=== PATIENT | male | born 1940 | race Caucasian/White ===

== ENCOUNTER 2016-10-23 13:03 | Outpatient (CLI) | payer MEDICARE, OTHER | END 2016-10-23 13:04 | disposition home or self-care (01) | DX: I48.0 Paroxysmal atrial fibrillation (principal); Z79.01 Long term (current) use of anticoagulants ==

== ENCOUNTER 2016-12-18 13:02 | Outpatient (CLI) | payer MEDICARE, OTHER | END 2016-12-18 13:03 | disposition home or self-care (01) | DX: Z79.01 Long term (current) use of anticoagulants (principal); I48.0 Paroxysmal atrial fibrillation ==

== ENCOUNTER 2017-02-13 13:00 | Outpatient (CLI) | payer MEDICARE, OTHER | END 2017-02-13 13:01 | disposition home or self-care (01) | LOC: LAB.F 13:00 | PROVIDERS: ATTEND Pharmacist | DX: Z79.01 Long term (current) use of anticoagulants (principal) | CPT/HCPCS: 85610 ==

== ENCOUNTER 2017-04-09 13:05 | Outpatient (CLI) | payer MEDICARE, OTHER | END 2017-04-09 13:06 | disposition home or self-care (01) | LOC: LAB.F 13:05 | PROVIDERS: ATTEND Pharmacist | DX: Z79.01 Long term (current) use of anticoagulants (principal) | CPT/HCPCS: 85610 ==

== ENCOUNTER 2017-06-04 13:03 | Outpatient (CLI) | payer MEDICARE, OTHER ==
[2017-06-04 17:23] LABS: INR 4.3 (0.8-1.2); PT - PROTHROMBIN TIME 49.5 secs (9.9-12.6)
== END 2017-06-04 13:04 | disposition home or self-care (01) ==
LOC: LAB.F 13:03
PROVIDERS: ATTEND Pharmacist
DX: Z79.01 Long term (current) use of anticoagulants (principal); I48.0 Paroxysmal atrial fibrillation
CPT/HCPCS: 36415; 85610

== ENCOUNTER 2017-06-16 13:09 | Outpatient (CLI) | payer MEDICARE, OTHER | END 2017-06-16 13:10 | disposition home or self-care (01) | LOC: LAB.F 13:09 | PROVIDERS: ATTEND Pharmacist | DX: Z79.01 Long term (current) use of anticoagulants (principal); I48.0 Paroxysmal atrial fibrillation | CPT/HCPCS: 85610 ==

== ENCOUNTER 2017-07-22 13:06 | Outpatient (CLI) | payer MEDICARE, OTHER | END 2017-07-22 13:07 | disposition home or self-care (01) | LOC: LAB.F 13:06 | PROVIDERS: ATTEND Pharmacist | DX: Z79.01 Long term (current) use of anticoagulants (principal); I48.0 Paroxysmal atrial fibrillation | CPT/HCPCS: 85610 ==

== ENCOUNTER 2017-08-07 13:12 | Outpatient (CLI) | payer MEDICARE, OTHER | END 2017-08-07 13:13 | disposition home or self-care (01) | LOC: LAB.F 13:12 | PROVIDERS: ATTEND Pharmacist | DX: Z79.01 Long term (current) use of anticoagulants (principal); I48.0 Paroxysmal atrial fibrillation | CPT/HCPCS: 85610 ==

== ENCOUNTER 2017-09-05 14:31 | Outpatient (CLI) | payer MEDICARE, OTHER | END 2017-09-05 14:32 | disposition home or self-care (01) | LOC: LAB.F 14:31 | PROVIDERS: ATTEND Pharmacist | DX: Z79.01 Long term (current) use of anticoagulants (principal); I48.0 Paroxysmal atrial fibrillation | CPT/HCPCS: 85610 ==

== ENCOUNTER 2017-09-24 13:11 | Outpatient (CLI) | payer MEDICARE, OTHER | END 2017-09-24 13:12 | disposition home or self-care (01) | LOC: LAB.F 13:11 | PROVIDERS: ATTEND Pharmacist | DX: Z79.01 Long term (current) use of anticoagulants (principal); I48.0 Paroxysmal atrial fibrillation | CPT/HCPCS: 85610 ==

== ENCOUNTER 2017-10-27 13:12 | Outpatient (CLI) | payer MEDICARE, OTHER | END 2017-10-27 13:13 | disposition home or self-care (01) | LOC: LAB.F 13:12 | PROVIDERS: ATTEND Pharmacist | DX: I48.91 Unspecified atrial fibrillation (principal); Z79.01 Long term (current) use of anticoagulants | CPT/HCPCS: 85610 ==

== ENCOUNTER 2017-11-27 14:42 | Outpatient (CLI) | payer MEDICARE, OTHER | END 2017-11-27 14:43 | disposition home or self-care (01) | LOC: LAB.F 14:42 | PROVIDERS: ATTEND Pharmacist | DX: Z79.01 Long term (current) use of anticoagulants (principal); I48.0 Paroxysmal atrial fibrillation | CPT/HCPCS: 85610 ==

== ENCOUNTER 2017-12-12 13:10 | Outpatient (CLI) | payer MEDICARE, OTHER | END 2017-12-12 13:11 | disposition home or self-care (01) | LOC: LAB.F 13:10 | PROVIDERS: ATTEND Pharmacist | DX: I48.0 Paroxysmal atrial fibrillation (principal); Z79.01 Long term (current) use of anticoagulants | CPT/HCPCS: 85610 ==

== ENCOUNTER 2017-12-26 13:07 | Outpatient (CLI) | payer MEDICARE, OTHER | END 2017-12-26 13:08 | disposition home or self-care (01) | LOC: LAB.F 13:07 | PROVIDERS: ATTEND Pharmacist | DX: Z79.01 Long term (current) use of anticoagulants (principal); I48.0 Paroxysmal atrial fibrillation | CPT/HCPCS: 85610 ==

== ENCOUNTER 2018-01-21 13:14 | Outpatient (CLI) | payer MEDICARE, OTHER | END 2018-01-21 13:15 | disposition home or self-care (01) | LOC: LAB.F 13:14 | PROVIDERS: ATTEND Pharmacist | DX: I48.0 Paroxysmal atrial fibrillation (principal); Z79.01 Long term (current) use of anticoagulants | CPT/HCPCS: 85610 ==

== ENCOUNTER 2018-02-24 13:05 | Outpatient (CLI) | END 2018-02-24 13:06 | disposition home or self-care (01) ==

== ENCOUNTER 2018-03-10 13:29 | Outpatient (CLI) | payer MEDICARE, OTHER | END 2018-03-10 13:30 | disposition home or self-care (01) | LOC: LAB.F 13:29 | PROVIDERS: ATTEND Pharmacist | DX: I48.0 Paroxysmal atrial fibrillation (principal); Z79.01 Long term (current) use of anticoagulants | CPT/HCPCS: 85610 ==

== ENCOUNTER 2018-04-01 13:32 | Outpatient (CLI) | payer MEDICARE, OTHER | END 2018-04-01 13:33 | disposition home or self-care (01) | LOC: LAB.F 13:32 | PROVIDERS: ATTEND Pharmacist | DX: Z79.01 Long term (current) use of anticoagulants (principal); I48.0 Paroxysmal atrial fibrillation | CPT/HCPCS: 85610 ==

== ENCOUNTER 2018-04-27 13:13 | Outpatient (CLI) | payer MEDICARE, OTHER | END 2018-04-27 13:14 | disposition home or self-care (01) | LOC: LAB.F 13:13 | PROVIDERS: ATTEND Pharmacist | DX: Z79.01 Long term (current) use of anticoagulants (principal); I48.0 Paroxysmal atrial fibrillation | CPT/HCPCS: 85610 ==

== ENCOUNTER 2018-05-13 13:51 | Outpatient (CLI) | payer MEDICARE, OTHER | END 2018-05-13 13:52 | disposition home or self-care (01) | LOC: LAB.F 13:51 | PROVIDERS: ATTEND Pharmacist | DX: I48.0 Paroxysmal atrial fibrillation (principal); Z79.01 Long term (current) use of anticoagulants | CPT/HCPCS: 85610 ==

== ENCOUNTER 2018-05-28 13:46 | Outpatient (CLI) | payer MEDICARE, OTHER | END 2018-05-28 13:47 | disposition home or self-care (01) | LOC: LAB.F 13:46 | PROVIDERS: ATTEND Pharmacist | DX: Z79.01 Long term (current) use of anticoagulants (principal); I48.0 Paroxysmal atrial fibrillation | CPT/HCPCS: 85610 ==

== ENCOUNTER 2018-06-23 11:05 | Outpatient (CLI) | payer MEDICARE, OTHER | END 2018-06-23 11:06 | disposition home or self-care (01) | LOC: LAB.F 11:05 | PROVIDERS: ATTEND Pharmacist | DX: Z79.01 Long term (current) use of anticoagulants (principal); I48.0 Paroxysmal atrial fibrillation | CPT/HCPCS: 85610 ==

== ENCOUNTER 2018-07-13 10:09 | Outpatient (CLI) | payer MEDICARE, OTHER | END 2018-07-13 10:10 | disposition critical access hospital (66) | LOC: EMS 10:09 | PROVIDERS: ATTEND Surgery | DX: M25.552 Pain in left hip (principal); W01.0XXA Fall on same level from slipping, tripping and stumbling without subsequent striking against object, initial encounter; Y92.008 Other place in unspecified non-institutional (private) residence as the place of occurrence of the external cause | CPT/HCPCS: A0425; A0429 ==

== ENCOUNTER 2018-07-13 10:48 | Inpatient (IN) | payer MEDICARE, OTHER ==
--- NOTE | 2018-07-13 10:57 | ED Physician Documentation ---
History of Present Illness - Stated complaint Stated Complaint: GLF - Additonal information Additional information: hx from pt 78 male slipped on wet leaves and fell on l hip severe l hip pain unable to bear weight did not hit head - has no WISE has no neck pain, has no numbness or weakness Review of Systems Constitutional: denies: Fever Cardiac: denies: Chest pain / pressure Respiratory: denies: Dyspnea GI: denies: Abdominal Pain : denies: Dysuria Musculoskeletal: reports: Extremity pain, Joint pain. denies: Neck pain Neurologic: denies: Headache, Head injury Endocrine: reports: Easy bruising / bleeding PD PAST MEDICAL HISTORY - Present Medications Home Medications: Ambulatory Orders Medication Instructions Recorded Confirmed Warfarin [Coumadin] 07/13/18 - Allergies Allergies/Adverse Reactions: Allergies Allergy/AdvReac Type Severity Reaction Status Date / Time No Known Drug Allergies Allergy Verified 07/13/18 11:06 PD ED PE NORMAL - Vitals Vital signs reviewed: Yes - General General: Alert and oriented X 3 - HEENT HEENT: Atraumatic - Neck Neck: No bony TTP - Cardiac Cardiac: RRR - Respiratory Respiratory: No respiratory distress, Clear bilaterally - Abdomen Abdomen: Non tender - Extremities Extremities: Other (TTP lat L hip with slight ext rotattion, gold LE edema not new per pt, MSV intact) Results - Vitals Vitals: Vital Signs - 24 hr 07/13/18 10:50 Temperature 36.3 C L Heart Rate 83 Respiratory 18 Rate Blood Pressure 154/97 H O2 Saturation 95 Oxygen O2 Source Room air - Labs Labs: Laboratory Tests 07/13/18 07/13/18 07/13/18 11:03 11:03 11:03 WBC 10.1 RBC 4.83 Hgb 15.4 Hct 44.8 MCV 92.8 MCH 31.8 H MCHC 34.3 RDW 13.1 Plt Count 167 MPV 10.2 Neut # (Auto) 8.4 H Lymph # (Auto) 0.8 L [place] # (Auto) 0.7 Eos # (Auto) 0.1 Baso # (Auto) 0.1 Absolute Nucleated RBC 0.00 Nucleated RBC % 0.0 PT 39.2 H INR 3.5 H Sodium 137 Potassium 4.1 Chloride 103 Carbon Dioxide 27 Anion Gap 7.0 BUN 19 Creatinine 1.0 Estimated GFR (MDRD) 72 L Glucose 117 H Calcium 8.7 - Rads (name of study) hip Radiology: See rad report PD MEDICAL DECISION MAKING - ED course ED course: + hip fx pt advised spoke to hospitalist at 1210 - will admit I also spoke to Dr Symone connelly pt is on coumadin - did not hit his head - has no head neck pain - checked on him several times and he is awake alert etc - will be in the hospital and can be observed - do not think needs CT imaging Departure - Departure Disposition: 66 [facility] DC/Xfer Clinical Impression: Hip fracture Qualifiers: Encounter type: initial encounter Fracture type: closed Laterality: left Qualified Code(s): S72.002A - Fracture of unspecified part of neck of left femur, initial encounter for closed fracture
[2018-07-13 11:25] LABS: BASOPHILS # (AUTO) 0.1 10^3/uL (0.0-0.1); BASOPHILS % (AUTO) 0.8 %; EOSINOPHILS # (AUTO) 0.1 10^3/uL (0.0-0.7); EOSINOPHILS % (AUTO) 0.9 %; HGB - HEMOGLOBIN 15.4 g/dL (14.0-18.0); LYMPHOCYTES # (AUTO) 0.8 10^3/uL (1.5-3.5); LYMPHOCYTES % (AUTO) 8.1 %; MEAN CORPUSCULAR HEMOGLOBIN 31.8 pg (27.0-31.0); MEAN CORPUSCULAR HGB CONC 34.3 g/dL (32.0-36.0); MEAN CORPUSCULAR VOLUME 92.8 fL (80.0-94.0); MEAN PLATELET VOLUME 10.2 fL (7.4-11.4); MONOCYTES # (AUTO) 0.7 10^3/uL (0.0-1.0); MONOCYTES % (AUTO) 6.7 %; NEUTROPHILS # (AUTO) 8.4 10^3/uL (1.5-6.6); NEUTROPHILS % (AUTO) 83.5 %; PLT - PLATELET COUNT 167 10^3/uL (130-450); RED BLOOD COUNT 4.83 10^6/uL (4.70-6.10); RED CELL DISTRIBUTION WIDTH 13.1 % (12.0-15.0); WHITE BLOOD COUNT 10.1 x10^3/uL (4.8-10.8)
[2018-07-13 11:32] LABS: INR 3.5 (0.8-1.2); PT - PROTHROMBIN TIME 39.2 secs (9.9-12.6)
[2018-07-13 11:37] LABS: CALCIUM 8.7 mg/dL (8.5-10.3)
[2018-07-13] MEDS ORDERED: MORPHINE 2 MG/ML CARPUJECT IVP STA (11:38)
[2018-07-13] MEDS: ONDANSETRON 4 MG/2 ML VIAL IVP STA (12:00)
--- NOTE | 2018-07-13 12:05 | XRAY Report ---
Reason: L hip pain ext rotatation s/p fall Procedure Date: 07/13/2018 Accession Number: [id number] / [id number] Procedure: XR - Hip w/Pelvis 2-3V LT CPT Code: FULL RESULT: EXAM: LEFT HIP AND PELVIS RADIOGRAPHY EXAM DATE: 07/13/2018 11:38 AM. HISTORY: Left hip pain ext rotation s/p fall. COMPARISONS: None. TECHNIQUE: 1 view of the pelvis and 1 view of the hip. FINDINGS: Bones: There is an acute, varus angulated fracture of the left femoral neck with roughly 90 degrees of apex varus angulation. No additional acute fractures appreciated. The sacral arcuate lines are intact. Joints: The bilateral hip, pubis symphysis, and sacroiliac joints are preserved. Multilevel degenerative and facet changes noted of the lumbar spine. Soft Tissues: Normal. No soft tissue swelling. IMPRESSION: Acute varus angulated fracture of the left femoral neck. RADIA The above findings were discussed with Coty Sullivan by Dr. Corbin Walker at 12:04 hrs on 07/13/18.
[2018-07-13] MEDS ORDERED: SODIUM CHLORIDE FLUSH 0.9% 10 ML SYRINGE IVP PRN (13:06)
--- NOTE | 2018-07-13 13:09 | HISTORY & PHYSICAL EXAMINATION ---
Chief Complaint - Chief Complaint Chief Complaint: left hip pain History of Present Illness - Admitted From Admitted From:: ED - History Obtained From Records Reviewed: yes, PCP records requested History obtained from: chart review, patient Exam Limitations: none - History of Present Illness HPI Comment/Other: Mulugeta Valladares is a 78-year old male with a past medical history of hypertension, chronic a-fib on coumadin, chronic hearing loss, BPH, nocturia, left knee arthritis, left knee replacement, and venous insufficiency. He was wearing his slippery, rubber croc shoes outside with is contractor near by when he accidentally slipped on whelan that grew on a cement slab outside of his garage doorstep. He did not loose consciousness, and can recall falling directly onto his left hip, and immediately had pain with an inability to get up. Luckily his contractor was able to aide him in calling 911. Once in the ED, imaging confirmed a left femoral neck fracture, so Dr. Ashby, Ortho surgery was contacted who will plan to repair the left hip after the patient's INR is sub- therapeutic below 1.7. Labs were unremarkable and on exam the patient has no complaints and denies chest pain, nausea, vomiting, rashes, fevers, chills, a new cough, orthopnea, shortness of breath or dizziness. He will be admitted to inpatient to the Hospitalist service and orthosurgery consulting. 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: None : reports: Benign prostate hypertrophy, Nocturia Psych: reports: None Musculoskeletal: reports: Osteoarthritis, Chronic back pain Derm: reports: None MRSA Hx?: No - Past Surgical History Ortho: reports: Knee replacement (left) HEENT: reports: Tonsil/Adenoidectomy Derm: reports: Skin cancer surgery - Family & Social History Family History: Mother: , CVA/TIA, Father: , COPD/Emphysema Living arrangement: At home Living Situation: Alone Social History Notes: The patient lived in [place] and moved to the [place] years ago after 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 He lives apart from his girlfriend Alethea who lives in [place]. He has one son. He denies alcoholism, and drinks 3-7 drinks per week. He denies tobacco or illicit drug use. He wishes to be a FULL code. - Substance History Use: Uses substance without health or social issues: NONE Abuse: Recurrent use of substance despite neg consequences: NONE Dependence: Experiences withdrawal or developed tolerances: NONE - POLST Patient has POLST: No POLST Status: Full Code Meds/Allgy - Home Medications Home Medications: Ambulatory Orders Medication Instructions Recorded Confirmed Lisinopril 20 mg PO DAILY 07/13/18 07/13/18 Metoprolol Succinate 25 mg PO DAILY 07/13/18 07/13/18 Multivitamin [Multivitamins] 1 tab PO DAILY 07/13/18 07/13/18 Warfarin [Coumadin] 7.5 mg PO DAILY 07/13/18 07/13/18 amLODIPine [Norvasc] 10 mg PO DAILY 07/13/18 07/13/18 - Allergies Allergies/Adverse Reactions: Allergies Allergy/AdvReac Type Severity Reaction Status Date / Time No Known Drug Allergies Allergy Verified 07/13/18 11:06 Review of Systems - Eyes Eyes: reports: Vision loss - Ears, Nose & Throat Ears, Nose & Throat: reports: Hearing loss, Nasal congestion - Cardiovascular Cariovascular: reports: Edema, Decr. exercise tolerance - Respiratory Respiratory: reports: Cough, SOB with exertion - Gastrointestinal Gastrointestinal: reports: Abdominal distention, Reflux/heartburn - Genitourinary Genitourinary: reports: Frequency, Urgency, Nocturia - Musculoskeletal Musculoskeletal: reports: Back pain, Limited range of motion - Integumentary Integumentary: reports: Dryness, Pigment changes (BLEs) - Neurological Neurological: reports: General weakness - All Other Systems All Other Systems: reports: Reviewed and negative Prior Level of Functionality: independent at home, lives alone and uses no walker or cane. Has not been falling. Exam - Vital Signs Reviewed Vital Signs: Yes Vital Signs: Vital Signs x48h Temp Pulse Resp BP Pulse Ox 07/13/18 10:50 36.3 C L 83 18 154/97 H 95 - Physical Exam General Appearance: positive: No acute distress, Alert Eyes Bilateral: positive: PERRL ENT: positive: Pharynx nml, No signs of dehydration Neck: positive: Thyroid nml, No JVD, Trachea midline Respiratory: positive: Chest non-tender, No respiratory distress, Breath sounds nml Cardiovascular: positive: Regular rate & rhythm, No gallop, Systolic murmur Peripheral Pulses: positive: 2+ Abdomen: positive: Non-tender, Nml bowel sounds, Other (obese, soft) Back: positive: Nml inspection Skin: positive: No rash, Warm, Dry Extremities: positive: Pedal edema, Joint swelling (left hip tenderness, no bruising or open areas.), Other (evidence of venous insufficiency, chronic BLE pitting edema and discoloration without open wounds. +sensation.) Neurologic/Psychiatric: positive: Oriented x3, CN's nml (2-12), Motor nml, Sensation nml, Depressed mood/affect Reflexes: Bicep (R): 3+, Bicep (L): 3+ Sepsis Event Note (H) - Evaluation Current Stage of Sepsis: Ruled out Conclusion/Plan - Problem List (1) Preop exam for internal medicine Conclusion/Plan: The patient scores a 0.4% using the revised cardiac risk index scale. He is not diabetic has a normal creatinine, has no history of TIA/strokes, no history of CHF, no known [place] history and this surgery is not considered to be a high risk surgery. This result was relayed to the patient. Plan: continue plan of care. (2) Fracture of femoral neck, left Conclusion/Plan: The patient states that he was about to enter the garage, which has a cement pad, covered with whelan and foot slipped easily on the whelan because he was wearing his croc rubber shoes and the combination made for a very slippery surface. He states that he landed directly onto his left hip, and immediately had pain. Luckily one of his contractors was with him, who called 911. Imaging was obtained in the ED, and confirmed a left femoral neck fracture. He is on chronic coumadin and was found to have an INR of 3.5, so we will treat him with vitamin K, and 2 units FFP this evening and if his INR is less than 1.7, he can undergo a left hip repair with Dr. Ashby on 07/14/18. Plan: Give 2 units FFP, vitamin K, and check INR. Qualifiers: Encounter type: initial encounter (3) Fall at home Conclusion/Plan: The patient denies previous falls and states that this fall was due to a slip and stumble in which he lost his footing due to slipper conditions and was conscious for the whole event. He now has a fractured left hip and he will likely get a left hip repair tomorrow. Plan: Continue fall precautions. Qualifiers: Encounter type: initial encounter Qualified Code(s): W19.XXXA - Unspecified fall, initial encounter; Y92.009 - Unspecified place in unspecified non- institutional (private) residence as the place of occurrence of the external cause (4) Atrial fibrillation, chronic Conclusion/Plan: The patient goes off [place] for his cardiovascular care and sees Dr. Chaney at [facility]. 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 He is prescribed metoprolol succinate 25 mg BID, lisinopril and is anticoagulated with Warfarin for an unknown reason as he appears to have great kidney function. He has been tachycardic since admission, so I have added a dose of BB tonight. He will be taken off anticoagulation during this hospital stay, and resumed post-op. Plan: Continue tele, monitor VS, and INR. (5) Anticoagulated on warfarin Conclusion/Plan: The patient had an elevated INR of 3.5 on admission, so he was given 2 units FFP, and vitamin K this evening. He is on warfarin for his chronic atrial fibrillation. Plan: Continue to hold coumadin until after surgery. (6) Hypertension Conclusion/Plan: The patient is prescribed Norvasc, lisinopril, and metoprolol at home, which will be continued while inpatient. Plan: Continue to monitor. Qualifiers: Hypertension type: essential hypertension Qualified Code(s): I10 - Essential (primary) hypertension - Lab Results Lab results reviewed: Yes Fish Bones: 07/13/18 11:03 07/13/18 11:03 Core Measures - Anticipated LOS I expect patient to be DC'd or transferred within 96 hours.: Yes - DVT/VTE - Prophylaxis VTE/DVT Device ordered at admit?: Yes VTE/DVT Prophylaxis med ordered at admit?: Yes Not Ordered - Medical Reason: Contraindicated - Stroke - Rehab Assessment Rehab services assessment to be ordered?: Yes - AMI - Statin at Admit Aspirin Prescribed on Admit: No Not Ordered - Medical Reason: Contraindicated
[2018-07-13] MEDS ORDERED: PHYTONADIONE INJ (ADULT) 10 MG in SODIUM CHLORIDE 0.9% 50 ML IV ONE (16:32)
[2018-07-13] MEDS: SODIUM CHLORIDE 0.9% 1,000 ML IV SCH (17:18)
[2018-07-13] MEDS: HYDROmorphone 1 MG/ML CARPUJECT IVP PRN ×3 (17:28→23:03)
[2018-07-13] MEDS: SODIUM CHLORIDE FLUSH 0.9% 10 ML SYRINGE IVP SCH (17:29)
[2018-07-13 21:17] LABS: INR 1.9 (0.8-1.2); PT - PROTHROMBIN TIME 21.3 secs (9.9-12.6)
[2018-07-13] MEDS ORDERED: METOPROLOL SUCCINATE 25 MG TABLET PO ONE (22:20)
[2018-07-14] MEDS: SODIUM CHLORIDE FLUSH 0.9% 10 ML SYRINGE IVP SCH ×4 (02:49→23:22)
[2018-07-14] MEDS: HYDROmorphone 1 MG/ML CARPUJECT IVP PRN ×4 (03:52→23:42)
[2018-07-14 05:45] LABS: BASOPHILS % (AUTO) 0.1 %; EOSINOPHILS % (AUTO) 0.2 %; HGB - HEMOGLOBIN 13.8 g/dL (14.0-18.0); LYMPHOCYTES # (AUTO) 0.6 10^3/uL (1.5-3.5); LYMPHOCYTES % (AUTO) 4.5 %; MEAN CORPUSCULAR HEMOGLOBIN 31.5 pg (27.0-31.0); MEAN CORPUSCULAR VOLUME 92.8 fL (80.0-94.0); MEAN PLATELET VOLUME 9.6 fL (7.4-11.4); MONOCYTES # (AUTO) 0.6 10^3/uL (0.0-1.0); MONOCYTES % (AUTO) 4.5 %; NEUTROPHILS # (AUTO) 12.4 10^3/uL (1.5-6.6); NEUTROPHILS % (AUTO) 90.7 %; PLT - PLATELET COUNT 136 10^3/uL (130-450); RED BLOOD COUNT 4.37 10^6/uL (4.70-6.10); WHITE BLOOD COUNT 13.6 x10^3/uL (4.8-10.8)
[2018-07-14 05:48] LABS: INR 1.3 (0.8-1.2); PT - PROTHROMBIN TIME 15.1 secs (9.9-12.6)
[2018-07-14 05:57] LABS: ALBUMIN 3.7 g/dL (3.2-5.5); ALBUMIN/GLOBULIN RATIO 1.4 (1.0-2.2); BILIRUBIN,TOTAL 1.6 mg/dL (0.2-1.0); CALCIUM 7.8 mg/dL (8.5-10.3); CREATININE 0.9 mg/dL (0.6-1.2); PHOSPHORUS 3.6 mg/dL (2.5-4.6); TOTAL PROTEIN 6.3 g/dL (6.7-8.2)
[2018-07-14 06:07] LABS: HB2 TOTAL 14.9 g/dL; HEMOGLOBIN A1C 0.5 g/dL; HEMOGLOBIN A1C % 5.2 % (4.6-6.2)
[2018-07-14] MEDS: SODIUM CHLORIDE 0.9% 1,000 ML IV SCH ×3 (06:24→17:29)
--- NOTE | 2018-07-14 06:51 | XRAY Report ---
Reason: cough, fall, pre-op Procedure Date: 07/14/2018 Accession Number: [id number] / [id number] Procedure: XR - Chest 1 View X-Ray CPT Code: 34089 FULL RESULT: EXAM: CHEST RADIOGRAPHY EXAM DATE: 07/14/2018 06:20 AM. CLINICAL HISTORY: Cough, fall, hip fracture, pre-op for fracture repair. COMPARISON: None. TECHNIQUE: 1 view. FINDINGS: Lungs/Pleura: Pulmonary vascularity upper normal. No alveolar consolidation or pleural effusion seen. No pneumothorax. Mediastinum: Borderline heart size. Aortic atherosclerosis. Other: None. IMPRESSION: 1. Borderline heart size and pulmonary vascularity. RADIA
[2018-07-14] MEDS ORDERED: NON FORMULARY MED (Multivitamin [Multivitamins] 1 TAB) PO SCH (09:00)
[2018-07-14] MEDS ORDERED: METOPROLOL SUCCINATE 25 MG TABLET PO SCH (09:00)
--- NOTE | 2018-07-14 09:16 | ANESTHESIA ---
Pre-Anesthesia VS, & Labs - Diagnosis Left femoral neck fracture - Procedure Left hip hemiarthroplasy Vital Signs: Temp Pulse Resp BP Pulse Ox 36.8 C 95 16 147/88 H 96 07/14/18 07:53 07/14/18 07:53 07/14/18 07:53 07/14/18 07:53 07/14/18 07:53 Height 6 ft Weight (kg) 113.5 kg Body Mass Index 34.7 - NPO >8 hours - Lab Results Current Lab Results: Laboratory Tests 07/14/18 05:31: Glycated Hemoglobin 5.2, Estim Average Glucose 103 H 07/14/18 05:31: Sodium 135, Potassium 3.9, Chloride 104, Carbon Dioxide 26, Anion Gap 5.0 L, BUN 17, Creatinine 0.9, Estimated GFR (MDRD) 81 L, Glucose 124 H, Calcium 7.8 L, Phosphorus 3.6, Magnesium 2.0, Total Bilirubin 1.6 H, AST 19, ALT 18, Alkaline Phosphatase 52, Total Protein 6.3 L, Albumin 3.7, Globulin 2.6, Albumin/Globulin Ratio 1.4 07/14/18 05:31: WBC 13.6 H, RBC 4.37 L, Hgb 13.8 L, Hct 40.6 L, MCV 92.8, MCH 31.5 H, MCHC 34.0, RDW 13.0, Plt Count 136, MPV 9.6, Neut # (Auto) 12.4 H, Lymph # (Auto) 0.6 L, [place] # (Auto) 0.6, Eos # (Auto) 0.0, Baso # (Auto) 0.0, Absolute Nucleated RBC 0.00, Nucleated RBC % 0.0 07/14/18 05:31: PT 15.1 H, INR 1.3 H 07/13/18 21:05: PT 21.3 H, INR 1.9 H 07/13/18 16:50: Blood Type O POSITIVE 07/13/18 11:03: Blood Type Recheck O POSITIVE 07/13/18 11:03: Sodium 137, Potassium 4.1, Chloride 103, Carbon Dioxide 27, Anion Gap 7.0, BUN 19, Creatinine 1.0, Estimated GFR (MDRD) 72 L, Glucose 117 H, Calcium 8.7 07/13/18 11:03: PT 39.2 H, INR 3.5 H 07/13/18 11:03: WBC 10.1, RBC 4.83, Hgb 15.4, Hct 44.8, MCV 92.8, MCH 31.8 H, MCHC 34.3, RDW 13.1, Plt Count 167, MPV 10.2, Neut # (Auto) 8.4 H, Lymph # (Auto) 0.8 L, [place] # (Auto) 0.7, Eos # (Auto) 0.1, Baso # (Auto) 0.1, Absolute Nucleated RBC 0.00, Nucleated RBC % 0.0 Fish Bones: 07/14/18 05:31 07/14/18 05:31 Home Medications and Allergies Home Medications: Ambulatory Orders Lisinopril 20 mg PO DAILY 07/13/18 Metoprolol Succinate 25 mg PO DAILY 07/13/18 Multivitamin [Multivitamins] 1 tab PO DAILY 07/13/18 Warfarin [Coumadin] 7.5 mg PO DAILY 07/13/18 amLODIPine [Norvasc] 10 mg PO DAILY 07/13/18 Active Medications Amlodipine Besylate (Norvasc) 10 mg PO DAILY [facility] Hydromorphone HCl (Dilaudid Inj Carp) 1 mg IVP Q2HR PRN PRN Reason: PAIN Last Admin: 07/14/18 06:23 Dose: 1 mg Sodium Chloride (Normal Saline 0.9%) 1,000 mls @ 83.333 mls/hr IV .Q12H [facility] Last Admin: 07/14/18 06:24 Dose: 83.333 mls/hr Lisinopril (Zestril) 20 mg PO DAILY [facility] Metoprolol Succinate (Toprol Xl) 25 mg PO BIDWM [facility] Multivitamins (Theragran) 1 tab PO DAILYWM [facility] Polyethylene Glycol (Miralax) 17 gm PO DAILY [facility] Sodium Chloride (Normal Saline Flush 0.9%) 10 ml IVP PRN PRN PRN Reason: NEEDED PER PROVIDER ORDERS Last Admin: 07/13/18 19:54 Dose: 10 ml Sodium Chloride (Normal Saline Flush 0.9%) 10 ml IVP 0100,0900,1700 [facility] Last Admin: 07/14/18 02:49 Dose: Not Given Lisinopril 20 mg PO DAILY 07/13/18 Metoprolol Succinate 25 mg PO DAILY 07/13/18 Multivitamin [Multivitamins] 1 tab PO DAILY 07/13/18 Warfarin [Coumadin] 7.5 mg PO DAILY 07/13/18 amLODIPine [Norvasc] 10 mg PO DAILY 07/13/18 Allergies/Adverse Reactions: Allergies Allergy/AdvReac Type Severity Reaction Status Date / Time No Known Drug Allergies Allergy Verified 07/13/18 11:06 Anes History & Medical History - Anesthetic History Anesthesia Complications: reports: No previous complications - Medical History Cardiovascular: reports: Hypertension, Atrial fibrillation, Murmur, Arrhythmia Pulmonary: reports: None Gastrointestinal: reports: None Urinary: reports: Benign prostate hypertrophy, Nocturia Neuro: reports: None Musculoskeletal: reports: Osteoarthritis, Chronic back pain Endocrine/Autoimmune: reports: None Blood Disorders: reports: None Skin: reports: None Smoking Status: Never smoker Psychosocial: reports: Alcohol (4 glasses of wine per week) - Surgical History Eyes Ears Nose Throat (EENT): Tonsil/Adenoidectomy Orthopedic: Knee replacement (left) Dermatologic: Skin cancer surgery Exam General: Alert, Oriented x3, Cooperative, No acute distress Dental: WNL Mouth Openin Fingerbreadth Neck Mobility: Normal Mallampati classification: II Thyromental Distance: 4-6 cm Respiratory: Lungs clear, Normal breath sounds, No respiratory distress, No accessory muscle use Cardiovascular: Other (Irregular) Mental/Cognitive Status: Alert/Oriented X3, Normal for patient Cognitive Status: Within normal limits Plan Anesthesia Type: General Consent for Procedure(s) Verified and Reviewed: Yes Code Status: Attempt Resuscitation ASA classification: 2-Mild systemic disease Is this case an emergency?: No
[2018-07-14] MEDS: LISINOPRIL 20 MG TABLET PO SCH (09:18)
[2018-07-14] MEDS: MULTIVITAMIN TABLET PO SCH (09:18)
[2018-07-14] MEDS: POLYETHYLENE GLYCOL 3350 17 GM PACKET PO SCH (09:19)
[2018-07-14] MEDS: METOPROLOL SUCCINATE 25 MG TABLET PO SCH ×2 (09:19→17:29)
[2018-07-14] MEDS: amLODIPine 5 MG TABLET PO SCH (09:20)
[2018-07-14 09:43] LABS: BILIRUBIN,URINE NEGATIVE (NEGATIVE); CLARITY,URINE CLEAR (CLEAR); GLUCOSE, URINE (UA) NEGATIVE (NEGATIVE); KETONES,URINE (UA) NEGATIVE (NEGATIVE); LEUKOCYTE ESTERASE, URINE NEGATIVE (NEGATIVE); NITRITE,URINE NEGATIVE (NEGATIVE); OCCULT BLOOD,URINE LARGE (NEGATIVE); PROTEIN,URINE NEGATIVE (NEGATIVE); UROBILINOGEN,URINE 0.2 (NORMAL) E.U./dL (NORMAL)
[2018-07-14 09:51] LABS: BACTERIA,URINE Few /HPF (None Seen); SQUAMOUS EPITHELIAL CELL,UR FEW Squamous (<= Few)
[2018-07-14 09:53] LABS: MUCUS,URINE Few Strands
[2018-07-14] MEDS ORDERED: PROPOFOL 200 MG/20 ML VIAL IVP ONE (12:13)
[2018-07-14] MEDS ORDERED: MORPHINE 10 MG/ML VIAL IVP ONE (12:13)
[2018-07-14] MEDS ORDERED: TRANEXAMIC ACID 1,000 MG/10 ML VIAL IV ONE (12:13)
[2018-07-14] MEDS ORDERED: ePHEDrine 50 MG/ML VIAL IVP ONE (12:13)
[2018-07-14] MEDS ORDERED: ceFAZolin 2 GM/50 ML 2 GM/50 ML BAG IV ONE ×2 (12:13→14:26)
[2018-07-14] MEDS ORDERED: ROCURONIUM 50 MG/5 ML VIAL IVP ONE (12:13)
[2018-07-14] MEDS ORDERED: ONDANSETRON 4 MG/2 ML VIAL IVP ONE (12:13)
[2018-07-14] MEDS ORDERED: NEOSTIGMINE 1 MG/1 ML 10 ML MDV IVP ONE (12:13)
[2018-07-14] MEDS ORDERED: GLYCOPYRROLATE 1 MG/5 ML VIAL IVP ONE (12:13)
[2018-07-14] MEDS ORDERED: SODIUM CHLORIDE 0.9% 1,000 ML IV ONE (14:19)
[2018-07-14] MEDS ORDERED: BUPIVACAINE 0.5%-EPI 1:200000 PF 30 ML VIAL ONE (15:01)
[2018-07-14] MEDS ORDERED: BUPIVACAINE 0.25%-EPI 1:200000 PF 30 ML VIAL SUBQ ONE ×3 (15:13→15:38)
[2018-07-14] MEDS ORDERED: LACTATED RINGERS 1,000 ML IV ONE (15:20)
--- NOTE | 2018-07-14 15:35 | PROVIDER PROGRESS NOTE ---
Subjective - Prog Note Date Prog Note Date: 07/14/18 - Subjective Pt reports feeling: Improved Subjective: pt state his pain is better, only pain when he turn side by side. he request some ice chips. He denies other symptoms. Current Medications - Current Medications Current Medications: Active Medications Amlodipine Besylate (Norvasc) 10 mg PO DAILY [facility] Last Admin: 07/14/18 09:20 Dose: 10 mg Hydromorphone HCl (Dilaudid Inj Carp) 1 mg IVP Q2HR PRN PRN Reason: PAIN Last Admin: 07/14/18 09:31 Dose: 1 mg Sodium Chloride (Normal Saline 0.9%) 1,000 mls @ 100 mls/hr IV .Q10H [facility] Last Admin: 07/14/18 12:50 Dose: 100 mls/hr Lisinopril (Zestril) 20 mg PO DAILY [facility] Last Admin: 07/14/18 09:18 Dose: Not Given Metoprolol Succinate (Toprol Xl) 25 mg PO BIDWM [facility] Last Admin: 07/14/18 09:19 Dose: 25 mg Multivitamins (Theragran) 1 tab PO DAILYWM [facility] Last Admin: 07/14/18 09:18 Dose: Not Given Polyethylene Glycol (Miralax) 17 gm PO DAILY [facility] Last Admin: 07/14/18 09:19 Dose: Not Given Sodium Chloride (Normal Saline Flush 0.9%) 10 ml IVP PRN PRN PRN Reason: NEEDED PER PROVIDER ORDERS Last Admin: 07/13/18 19:54 Dose: 10 ml Sodium Chloride (Normal Saline Flush 0.9%) 10 ml IVP 0100,0900,1700 [facility] Last Admin: 07/14/18 09:19 Dose: Not Given Lisinopril 20 mg PO DAILY 07/13/18 Metoprolol Succinate 25 mg PO DAILY 07/13/18 Multivitamin [Multivitamins] 1 tab PO DAILY 07/13/18 Warfarin [Coumadin] 7.5 mg PO DAILY 07/13/18 amLODIPine [Norvasc] 10 mg PO DAILY 07/13/18 Objective - Vital Signs/Intake & Output Reviewed Vital Signs: Yes Vital Signs: Vital Signs x48h Temp Pulse Resp BP Pulse Ox 07/14/18 11:38 36.5 C 90 18 138/81 H 95 07/14/18 07:53 36.8 C 95 16 147/88 H 96 Intake & Output: Intake & Output 07/11/18 07/12/18 07/13/18 07/14/18 23:59 23:59 23:59 23:59 Intake Total 586 1536.109 Output Total 900 550 Balance -314 986.109 - Objective General Appearance: positive: No acute distress, Alert. negative: Lethargic Eyes Bilateral: positive: Normal inspection, PERRL, No lid inflammation, Conju nctivae nml ENT: positive: ENT inspection nml, Pharynx nml, No signs of dehydration. negative: Purulent nasal drainage, Pharyngeal erythema, Oral lesions Neck: positive: Nml inspection, Thyroid nml, No JVD, Trachea midline. negative: Thyromegaly, Lymphadenopathy (R), Lymphadenopathy (L), Stiff neck, Swelling/bruising, Tracheal deviation Respiratory: positive: Chest non-tender, No respiratory distress, Breath sounds nml. negative: Wheezes, Rales, Rhonchi Cardiovascular: positive: Regular rate & rhythm, No murmur, No gallop. negative: Irregularly irregular, Extrasystoles, Tachycardia, Bradycardia, JVD present, Systolic murmur, Diastolic murmur Peripheral Pulses: 2+ Radial (R), 2+ Radial (L), 2+ Dorsalis pedis (R), 2+ Dorsalis pedis (L) Abdomen: positive: Non-tender, Nml bowel sounds, No distention. negative: Tenderness, Guarding, Rebound Back: positive: Nml inspection. negative: CVA tenderness (R), CVA tenderness (L) Skin: positive: Color nml, No rash, Warm, Dry. negative: Cyanosis, Diaphoresis, Pallor Extremities: positive: Non-tender, Full ROM, Nml appearance. negative: Calf tenderness, Joint swelling, Danielle's sign/cords Neurologic/Psychiatric: positive: Oriented x3, Sensation nml, Mood/affect nml. negative: Weakness, Sensory loss, Facial droop, Slurred/abnml speech, Depressed mood/affect - Lab Results Fish Bones: 07/14/18 05:31 07/14/18 05:31 Other Labs: Lab Results x24hrs 07/14/18 07/14/18 07/14/18 Range/Units 09:30 05:31 05:31 WBC (4.8-10.8) x10^3/uL RBC (4.70-6.10) 10^6/uL Hgb (14.0-18.0) g/dL Hct (42.0-52.0) % MCV (80.0-94.0) fL MCH (27.0-31.0) pg MCHC (32.0-36.0) g/dL RDW (12.0-15.0) % Plt Count (130-450) 10^3/uL MPV (7.4-11.4) fL Neut # (Auto) (1.5-6.6) 10^3/uL Lymph # (Auto) (1.5-3.5) 10^3/uL [place] # (Auto) (0.0-1.0) 10^3/uL Eos # (Auto) (0.0-0.7) 10^3/uL Baso # (Auto) (0.0-0.1) 10^3/uL Absolute Nucleated RBC x10^3/uL Nucleated RBC % /100WBC PT (9.9-12.6) secs INR (0.8-1.2) Sodium 135 (135-145) mmol/L Potassium 3.9 (3.5-5.0) mmol/L Chloride 104 (101-111) mmol/L Carbon Dioxide 26 (21-32) mmol/L Anion Gap 5.0 L (6-13) BUN 17 (6-20) mg/dL Creatinine 0.9 (0.6-1.2) mg/dL Estimated GFR (MDRD) 81 L (>89) Glucose 124 H (70-100) mg/dL Glycated Hemoglobin 5.2 (4.6-6.2) % Estim Average Glucose 103 H (70-100) Calcium 7.8 L (8.5-10.3) mg/dL Phosphorus 3.6 (2.5-4.6) mg/dL Magnesium 2.0 (1.7-2.8) mg/dL Total Bilirubin 1.6 H (0.2-1.0) mg/dL AST 19 (10-42) IU/L ALT 18 (10-60) IU/L Alkaline Phosphatase 52 (42-121) IU/L Total Protein 6.3 L (6.7-8.2) g/dL Albumin 3.7 (3.2-5.5) g/dL Globulin 2.6 (2.1-4.2) g/dL Albumin/Globulin Ratio 1.4 (1.0-2.2) Urine Color DARK YELLOW Urine Clarity CLEAR (CLEAR) Urine pH 6.0 (5.0-7.5) PH Ur Specific [place] >=1.030 H (1.002-1.030) Urine Protein NEGATIVE (NEGATIVE) mg/dL Urine Glucose (UA) NEGATIVE (NEGATIVE) mg/dL Urine Ketones NEGATIVE (NEGATIVE) mg/dL Urine Occult Blood LARGE H (NEGATIVE) Urine Nitrite NEGATIVE (NEGATIVE) Urine Bilirubin NEGATIVE (NEGATIVE) Urine Urobilinogen 0.2 (NORMAL) (NORMAL) E.U./dL Ur Leukocyte Esterase NEGATIVE (NEGATIVE) Urine RBC 11-25 H (0-5) /HPF Urine WBC 0-3 (0-3) /HPF Ur Squamous Epith Cells FEW Squamous (<= Few) Urine Bacteria Few (None Seen) /HPF Urine Mucus Few Strands Urine Culture Comments NOT INDICATED Blood Type Blood Type Recheck 07/14/18 07/14/18 07/13/18 Range/Units 05:31 05:31 21:05 WBC 13.6 H (4.8-10.8) x10^3/uL RBC 4.37 L (4.70-6.10) 10^6/uL Hgb 13.8 L (14.0-18.0) g/dL Hct 40.6 L (42.0-52.0) % MCV 92.8 (80.0-94.0) fL MCH 31.5 H (27.0-31.0) pg MCHC 34.0 (32.0-36.0) g/dL RDW 13.0 (12.0-15.0) % Plt Count 136 (130-450) 10^3/uL MPV 9.6 (7.4-11.4) fL Neut # (Auto) 12.4 H (1.5-6.6) 10^3/uL Lymph # (Auto) 0.6 L (1.5-3.5) 10^3/uL [place] # (Auto) 0.6 (0.0-1.0) 10^3/uL Eos # (Auto) 0.0 (0.0-0.7) 10^3/uL Baso # (Auto) 0.0 (0.0-0.1) 10^3/uL Absolute Nucleated RBC 0.00 x10^3/uL Nucleated RBC % 0.0 /100WBC PT 15.1 H 21.3 H (9.9-12.6) secs INR 1.3 H 1.9 H (0.8-1.2) Sodium (135-145) mmol/L Potassium (3.5-5.0) mmol/L Chloride (101-111) mmol/L Carbon Dioxide (21-32) mmol/L Anion Gap (6-13) BUN (6-20) mg/dL Creatinine (0.6-1.2) mg/dL Estimated GFR (MDRD) (>89) Glucose (70-100) mg/dL Glycated Hemoglobin (4.6-6.2) % Estim Average Glucose (70-100) Calcium (8.5-10.3) mg/dL Phosphorus (2.5-4.6) mg/dL Magnesium (1.7-2.8) mg/dL Total Bilirubin (0.2-1.0) mg/dL AST (10-42) IU/L ALT (10-60) IU/L Alkaline Phosphatase (42-121) IU/L Total Protein (6.7-8.2) g/dL Albumin (3.2-5.5) g/dL Globulin (2.1-4.2) g/dL Albumin/Globulin Ratio (1.0-2.2) Urine Color Urine Clarity (CLEAR) Urine pH (5.0-7.5) PH Ur Specific [place] (1.002-1.030) Urine Protein (NEGATIVE) mg/dL Urine Glucose (UA) (NEGATIVE) mg/dL Urine Ketones (NEGATIVE) mg/dL Urine Occult Blood (NEGATIVE) Urine Nitrite (NEGATIVE) Urine Bilirubin (NEGATIVE) Urine Urobilinogen (NORMAL) E.U./dL Ur Leukocyte Esterase (NEGATIVE) Urine RBC (0-5) /HPF Urine WBC (0-3) /HPF Ur Squamous Epith Cells (<= Few) Urine Bacteria (None Seen) /HPF Urine Mucus Urine Culture Comments Blood Type Blood Type Recheck 07/13/18 07/13/18 Range/Units 16:50 11:03 WBC (4.8-10.8) x10^3/uL RBC (4.70-6.10) 10^6/uL Hgb (14.0-18.0) g/dL Hct (42.0-52.0) % MCV (80.0-94.0) fL MCH (27.0-31.0) pg MCHC (32.0-36.0) g/dL RDW (12.0-15.0) % Plt Count (130-450) 10^3/uL MPV (7.4-11.4) fL Neut # (Auto) (1.5-6.6) 10^3/uL Lymph # (Auto) (1.5-3.5) 10^3/uL [place] # (Auto) (0.0-1.0) 10^3/uL Eos # (Auto) (0.0-0.7) 10^3/uL Baso # (Auto) (0.0-0.1) 10^3/uL Absolute Nucleated RBC x10^3/uL Nucleated RBC % /100WBC PT (9.9-12.6) secs INR (0.8-1.2) Sodium (135-145) mmol/L Potassium (3.5-5.0) mmol/L Chloride (101-111) mmol/L Carbon Dioxide (21-32) mmol/L Anion Gap (6-13) BUN (6-20) mg/dL Creatinine (0.6-1.2) mg/dL Estimated GFR (MDRD) (>89) Glucose (70-100) mg/dL Glycated Hemoglobin (4.6-6.2) % Estim Average Glucose (70-100) Calcium (8.5-10.3) mg/dL Phosphorus (2.5-4.6) mg/dL Magnesium (1.7-2.8) mg/dL Total Bilirubin (0.2-1.0) mg/dL AST (10-42) IU/L ALT (10-60) IU/L Alkaline Phosphatase (42-121) IU/L Total Protein (6.7-8.2) g/dL Albumin (3.2-5.5) g/dL Globulin (2.1-4.2) g/dL Albumin/Globulin Ratio (1.0-2.2) Urine Color Urine Clarity (CLEAR) Urine pH (5.0-7.5) PH Ur Specific [place] (1.002-1.030) Urine Protein (NEGATIVE) mg/dL Urine Glucose (UA) (NEGATIVE) mg/dL Urine Ketones (NEGATIVE) mg/dL Urine Occult Blood (NEGATIVE) Urine Nitrite (NEGATIVE) Urine Bilirubin (NEGATIVE) Urine Urobilinogen (NORMAL) E.U./dL Ur Leukocyte Esterase (NEGATIVE) Urine RBC (0-5) /HPF Urine WBC (0-3) /HPF Ur Squamous Epith Cells (<= Few) Urine Bacteria (None Seen) /HPF Urine Mucus Urine Culture Comments Blood Type O POSITIVE Blood Type Recheck O POSITIVE ABX Reporting Has patient been on IV antibiotics over the past 48 hours?: No Sepsis Event Note (H) - Evaluation Current Stage of Sepsis: Ruled out Assessment/Plan - Problem List (1) Preop exam for internal medicine Impression: (1) pt is on surgery now, will follow up (2) Fracture of femoral neck, left pt is on surgery now, will follow up surgeon's recommendation continue pain control continue DVT prophylaxis PT/OT evaluation and treatment (3) Fall at home will educate pt for prevention of fall (4) Atrial fibrillation, chronic will resume of home Coumadin after discussion with surgeon continue beta-block continue PT/INR check continue tele, vital monitor (6) Hypertension stable, continue home meds vital monitor
--- NOTE | 2018-07-14 16:08 | OPERATIVE REPORT ---
Operative Report - General Admit Date: 07/13/18 Procedure Date: 07/14/18 Planned Procedure: bipolar left hip Pre-Op Diagnosis: left femoral neck fracture Procedure Performed: left hip bipolar replacement Post Op Diagnosis: same - Procedure Note Primary Surgeon: shanon Anesthesia Technique: General ET tube Estimated Blood Loss (mL): 500
[2018-07-14] MEDS: ONDANSETRON 4 MG/2 ML VIAL IVP STA (16:39)
[2018-07-14] MEDS ORDERED: ONDANSETRON 4 MG/2 ML VIAL ONE (16:40)
[2018-07-14] MEDS ORDERED: fentaNYL 100 MCG/2 ML VIAL ONE (16:44)
--- NOTE | 2018-07-14 17:03 | XRAY Report ---
Reason: post op Procedure Date: 07/14/2018 Accession Number: [id number] / [id number] Procedure: XR - Hip w/Pelvis 2-3V LT CPT Code: FULL RESULT: EXAM: LEFT HIP AND PELVIS RADIOGRAPHY EXAM DATE: 07/14/2018 04:38 PM. HISTORY: Post op. COMPARISONS: 07/13/2018. TECHNIQUE: 1 view of the pelvis and 1 view of the hip. 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 The acetabular component projects in a mildly horizontal position. No dislocation. No acute fracture. RADIA
[2018-07-14] MEDS ORDERED: ONDANSETRON 4 MG/2 ML VIAL IVP PRN (19:59)
[2018-07-15] MEDS: SODIUM CHLORIDE 0.9% 1,000 ML IV SCH ×3 (02:58→13:37)
[2018-07-15] MEDS: HYDROmorphone 1 MG/ML CARPUJECT IVP PRN ×2 (05:34→07:54)
[2018-07-15 06:16] LABS: BASOPHILS # (AUTO) 0.1 10^3/uL (0.0-0.1); BASOPHILS % (AUTO) 0.8 %; EOSINOPHILS % (AUTO) 0.3 %; HGB - HEMOGLOBIN 12.2 g/dL (14.0-18.0); LYMPHOCYTES # (AUTO) 0.6 10^3/uL (1.5-3.5); LYMPHOCYTES % (AUTO) 5.4 %; MEAN CORPUSCULAR HEMOGLOBIN 31.7 pg (27.0-31.0); MEAN CORPUSCULAR HGB CONC 32.9 g/dL (32.0-36.0); MEAN CORPUSCULAR VOLUME 96.3 fL (80.0-94.0); MEAN PLATELET VOLUME 9.4 fL (7.4-11.4); MONOCYTES # (AUTO) 0.9 10^3/uL (0.0-1.0); MONOCYTES % (AUTO) 7.4 %; NEUTROPHILS # (AUTO) 10.1 10^3/uL (1.5-6.6); NEUTROPHILS % (AUTO) 86.1 %; PLT - PLATELET COUNT 120 10^3/uL (130-450); RED BLOOD COUNT 3.84 10^6/uL (4.70-6.10); RED CELL DISTRIBUTION WIDTH 13.3 % (12.0-15.0); WHITE BLOOD COUNT 11.8 x10^3/uL (4.8-10.8)
[2018-07-15 06:29] LABS: ALBUMIN/GLOBULIN RATIO 1.2 (1.0-2.2); BILIRUBIN,TOTAL 1.3 mg/dL (0.2-1.0); CALCIUM 7.2 mg/dL (8.5-10.3); CREATININE 1.1 mg/dL (0.6-1.2); TOTAL PROTEIN 5.6 g/dL (6.7-8.2)
--- NOTE | 2018-07-15 07:25 | PROVIDER PROGRESS NOTE ---
Subjective - General Admit Date: 07/13/18 Procedure Date: 07/14/18 Post Op Days: 1 Procedure Performed: left hip Bipolar replacement - Review of Systems Wound/Incisions: positive: Dressing dry and intact Drain Type: hemovac. Removed with minimal drainage overnight Musculoskeletal: positive: Joint pain Psychiatric: positive: No symptoms All Other Systems: positive: Reviewed and negative Objective - Patient Data Reviewed Vital Signs: Yes Vital Signs: Vital Signs x48h Temp Pulse Resp BP Pulse Ox 07/15/18 05:45 37.2 C 98 16 125/77 96 07/14/18 23:55 37.1 C 96 16 132/87 H 95 Weight: Weight 07/13/18 07/14/18 07/15/18 23:59 23:59 23:59 Weight (kg) 116 kg 113.5 kg 115 kg Intake & Output: Intake and Output Totals x24h 07/13/18 07/14/18 07/15/18 23:59 23:59 23:59 Intake Total 586 2601.109 1148.333 Output Total 513 215 0226 Balance -314 2021.109 148.333 - Lab Results Lab Results: 07/15/18 06:00 07/15/18 06:00 Other Lab Results: Lab Results x24hrs 07/15/18 07/15/18 07/14/18 Range/Units 06:00 06:00 09:30 WBC 11.8 H (4.8-10.8) x10^3/uL RBC 3.84 L (4.70-6.10) 10^6/uL Hgb 12.2 L (14.0-18.0) g/dL Hct 37.0 L (42.0-52.0) % MCV 96.3 H (80.0-94.0) fL MCH 31.7 H (27.0-31.0) pg MCHC 32.9 (32.0-36.0) g/dL RDW 13.3 (12.0-15.0) % Plt Count 120 L (130-450) 10^3/uL MPV 9.4 (7.4-11.4) fL Neut # (Auto) 10.1 H (1.5-6.6) 10^3/uL Lymph # (Auto) 0.6 L (1.5-3.5) 10^3/uL [place] # (Auto) 0.9 (0.0-1.0) 10^3/uL Eos # (Auto) 0.0 (0.0-0.7) 10^3/uL Baso # (Auto) 0.1 (0.0-0.1) 10^3/uL Absolute Nucleated RBC 0.00 x10^3/uL Nucleated RBC % 0.0 /100WBC Sodium 134 L (135-145) mmol/L Potassium 3.9 (3.5-5.0) mmol/L Chloride 103 (101-111) mmol/L Carbon Dioxide 27 (21-32) mmol/L Anion Gap 4.0 L (6-13) BUN 15 (6-20) mg/dL Creatinine 1.1 (0.6-1.2) mg/dL Estimated GFR (MDRD) 65 L (>89) Glucose 144 H (70-100) mg/dL Calcium 7.2 L (8.5-10.3) mg/dL Total Bilirubin 1.3 H (0.2-1.0) mg/dL AST 22 (10-42) IU/L ALT 14 (10-60) IU/L Alkaline Phosphatase 44 (42-121) IU/L Total Protein 5.6 L (6.7-8.2) g/dL Albumin 3.0 L (3.2-5.5) g/dL Globulin 2.6 (2.1-4.2) g/dL Albumin/Globulin Ratio 1.2 (1.0-2.2) Urine Color DARK YELLOW Urine Clarity CLEAR (CLEAR) Urine pH 6.0 (5.0-7.5) PH Ur Specific [place] >=1.030 H (1.002-1.030) Urine Protein NEGATIVE (NEGATIVE) mg/dL Urine Glucose (UA) NEGATIVE (NEGATIVE) mg/dL Urine Ketones NEGATIVE (NEGATIVE) mg/dL Urine Occult Blood LARGE H (NEGATIVE) Urine Nitrite NEGATIVE (NEGATIVE) Urine Bilirubin NEGATIVE (NEGATIVE) Urine Urobilinogen 0.2 (NORMAL) (NORMAL) E.U./dL Ur Leukocyte Esterase NEGATIVE (NEGATIVE) Urine RBC 11-25 H (0-5) /HPF Urine WBC 0-3 (0-3) /HPF Ur Squamous Epith Cells FEW Squamous (<= Few) Urine Bacteria Few (None Seen) /HPF Urine Mucus Few Strands Urine Culture Comments NOT INDICATED - Imaging Results Radiology Imaging: positive: EMP read indepedently - Current Medications Current Medications: Current Medications Generic Name Dose Route Start Last Admin Trade Name Oswald PRN Reason Stop Dose Admin Amlodipine Besylate 10 mg 07/14/18 09:00 07/14/18 09:20 Norvasc PO 10 mg DAILY [facility] Administration Hydromorphone HCl 1 mg 07/13/18 16:28 07/15/18 05:34 Dilaudid Inj Carp IVP 1 mg Q2HR PRN Administration PAIN Sodium Chloride 1,000 mls @ 100 mls/hr 07/14/18 11:39 07/15/18 02:58 Normal Saline 0.9% IV 100 mls/hr .Q10H [facility] Administration Lisinopril 20 mg 07/14/18 09:00 07/14/18 09:18 Zestril PO Not Given DAILY [facility] Metoprolol Succinate 25 mg 07/14/18 08:00 07/14/18 17:29 Toprol Xl PO 25 mg BIDWM [facility] Administration Multivitamins 1 tab 07/14/18 08:00 07/14/18 09:18 Theragran PO Not Given DAILYWM [facility] Ondansetron HCl 4 mg 07/14/18 19:59 07/14/18 20:22 Zofran Inj IVP 4 mg Q6HR PRN Administration Nausea / Vomiting Polyethylene Glycol 17 gm 07/14/18 09:00 07/14/18 09:19 Miralax PO Not Given DAILY [facility] Sodium Chloride 10 ml 07/13/18 13:06 07/13/18 19:54 Normal Saline Flush 0.9% IVP 10 ml PRN PRN Administration NEEDED PER PROVIDER ORDERS Sodium Chloride 10 ml 07/13/18 17:00 07/14/18 23:22 Normal Saline Flush 0.9% IVP Not Given 0100,0900,1700 [facility] - Physical Exam Wound/Incisions: positive: Dressing dry and intact General Appearance: positive: No acute distress Extremities: positive: Joint swelling Neurologic/Psychiatric: positive: Oriented x3, CN's nml (2-12), Motor nml, Sensation nml, Mood/affect nml Impression/Plan - Problem List Problem List: POD #1 Plan to begin physical therapy. Total hip precautions. Follow Hct. post op
[2018-07-15] MEDS: METOPROLOL SUCCINATE 25 MG TABLET PO SCH ×2 (09:04→16:11)
[2018-07-15] MEDS: MULTIVITAMIN TABLET PO SCH (09:04)
[2018-07-15] MEDS: WARFARIN 2.5 MG TABLET PO SCH (09:04)
[2018-07-15] MEDS: LISINOPRIL 20 MG TABLET PO SCH (09:04)
[2018-07-15] MEDS: amLODIPine 5 MG TABLET PO SCH (09:04)
[2018-07-15] MEDS: POLYETHYLENE GLYCOL 3350 17 GM PACKET PO SCH (09:05)
[2018-07-15] MEDS: SODIUM CHLORIDE FLUSH 0.9% 10 ML SYRINGE IVP SCH ×2 (09:58→16:11)
--- NOTE | 2018-07-15 10:02 | CONSULTATION NOTE ---
DATE OF SERVICE: 07/14/2018 Physician: Fernando Ashby MD REASON FOR CONSULTATION: A left femoral neck fracture REQUESTING PROVIDER: Bambi Ashraf MD HISTORY OF PRESENT ILLNESS: The patient is a 78-year-old male with multiple medical problems, who suffered a ground level fall injuring his left hip on the evening of 07/13/2018 requiring admission to the hospital. The patient was admitted to the medical service for preparation for surgery. His prior medical history is remarkable for predominantly hypertension, atrial fibrillation, heart murmur, arrhythmia, chronic anticoagulation. The remaining prior history, review of systems, and family history are all documented in his record. PHYSICAL EXAMINATION: The patient's physical exam showed him to be a large man who was in pain because of his left hip and he was fairly immobile in bed and did have some hip spasm. He did not have other injuries or other areas of pain complaints, and his hip was noted to be short and externally rotated with pain on movement and palpation, but distal neurovascular exam normal. His x-ray evaluation revealed a displaced femoral neck fracture in varus and with slight neck comminution. He did not have arthritis changes. IMPRESSION: A 78-year-old male admitted with Coumadin anticoagulation requiring reversal in preparation for a bipolar hip replacement scheduled for 07/14/2018. TD: 07/15/2018 07:41 MTDD
--- NOTE | 2018-07-15 10:19 | OPERATIVE REPORT ---
DATE OF SERVICE: 07/14/2018 Physician: Fernando Ashby MD PREOPERATIVE DIAGNOSIS: Left displaced femoral neck fracture. POSTOPERATIVE DIAGNOSIS: Left displaced femoral neck fracture. PROCEDURE PERFORMED: Left hip bipolar replacement. OPERATING SURGEON: Fernando Ashby MD ANESTHESIA: General by Dr. Godfrey. INDICATIONS FOR SURGERY: The patient is a 78-year-old male who suffered a ground level fall and required admission to the hospital with pain and inability to ambulate. He was evaluated by medicine and prepared for surgery. He had previously been on Coumadin and so he was prepared by reversing his anticoagulation. He was felt stable for surgery on 07/14/2018. FINDINGS AT SURGERY: The patient's fracture had comminution. It was a displaced femoral neck fracture through the low aspect of the neck. The patient did not have arthritis changes of the femoral head or acetabulum. DESCRIPTION OF OPERATIVE PROCEDURE: The patient was taken to the operating room and was given a general anesthetic in a supine position, after which he was rolled into a right lateral decubitus position with appropriate axillary roll and padding about his bony prominences. His left hip was isolated with drapes and sterilely prepped and draped in standard fashion. A posterior approach was made to the hip after a surgical timeout. The hip was exposed with a minimal takedown of the short rotators and capsule posteriorly to allow the hip to be displaced and the fractured femoral head to be removed from the acetabulum and the neck osteotomy to be made with a saw and rongeur. Following this, the femoral canal was initially probed and then broached up to accommodate a size 15 Taperloc [employer] stem. The trial was left in place. Calcar reaming performed and then trial reduction initially with a standard neck length and a 52 mm bipolar head. This seemed to most accurately reproduce stability and muscle tension, but seemed to be slightly long in length and therefore it was elected to back off to a -3 neck length. Following this, the wound and the bone was irrigated thoroughly with removal of trial components, and all bone fragments were removed from around the acetabulum and then the tissues. The size 15 stem with standard offset was inserted and this followed with the assembled bipolar head with a 28 mm inner head and 52 outer. This was reduced into the acetabulum and cycled through range of motion and was stable and limb lengths appeared to be reconstructed appropriately. Following this, there was once again an irrigation, followed by closure of the wound over a small Hemovac drain because of the patient's continued oozing during the case. The closure was with FiberWire closure of the tensor fascia in that interval followed by interrupted Vicryl closure of subcutaneous tissues and staple closure of skin with a large silver dressing applied. The patient was then placed back into a supine position on the OR table and then transferred to a hospital bed in stable condition. ESTIMATED BLOOD LOSS: About 400-500 mL COMPLICATIONS: None. SPONGE AND NEEDLE COUNTS: Correct. Implants used: [employer] bipolar cup 52/28. -3mm 28mm diam head. Taperloc sz 15 standard offset stem. TD: 07/15/2018 07:40 MTDD
[2018-07-15] MEDS: KETOROLAC 15 MG/ML VIAL IVP PRN (11:38)
[2018-07-15] MEDS: oxyCODONE 5 MG TABLET PO PRN ×3 (11:39→21:22)
--- NOTE | 2018-07-15 13:23 | PROVIDER PROGRESS NOTE ---
Subjective - Prog Note Date Prog Note Date: 07/15/18 - Subjective Pt reports feeling: Improved Subjective: pt state when he move he still has pain at surgery site. He denies fever, chill, cough, chest pain, shortness of breath. Current Medications - Current Medications Current Medications: Active Medications Amlodipine Besylate (Norvasc) 10 mg PO DAILY [facility] Last Admin: 07/15/18 09:04 Dose: 10 mg Hydromorphone HCl (Dilaudid Inj Carp) 1 mg IVP Q2HR PRN PRN Reason: PAIN Last Admin: 07/15/18 07:54 Dose: 1 mg Sodium Chloride (Normal Saline 0.9%) 1,000 mls @ 83.3 mls/hr IV .Q12H1M [facility] Last Admin: 07/15/18 09:08 Dose: 83.3 mls/hr Ketorolac Tromethamine (Toradol Inj (15mg)) 15 mg IVP Q6HR PRN PRN Reason: PAIN Stop: 07/20/18 11:22 Last Admin: 07/15/18 11:38 Dose: 15 mg Lisinopril (Zestril) 20 mg PO DAILY [facility] Last Admin: 07/15/18 09:04 Dose: 20 mg Metoprolol Succinate (Toprol Xl) 25 mg PO BIDWM [facility] Last Admin: 07/15/18 09:04 Dose: 25 mg Multivitamins (Theragran) 1 tab PO DAILYWM [facility] Last Admin: 07/15/18 09:04 Dose: 1 tab Ondansetron HCl (Zofran Inj) 4 mg IVP Q6HR PRN PRN Reason: Nausea / Vomiting Last Admin: 07/14/18 20:22 Dose: 4 mg Oxycodone HCl (Roxicodone) 5 mg PO Q4HR PRN PRN Reason: PAIN Last Admin: 07/15/18 11:39 Dose: 5 mg Polyethylene Glycol (Miralax) 17 gm PO DAILY [facility] Last Admin: 07/15/18 09:05 Dose: 17 gm Sodium Chloride (Normal Saline Flush 0.9%) 10 ml IVP PRN PRN PRN Reason: NEEDED PER PROVIDER ORDERS Last Admin: 07/13/18 19:54 Dose: 10 ml Sodium Chloride (Normal Saline Flush 0.9%) 10 ml IVP 0100,0900,1700 [facility] Last Admin: 07/15/18 09:58 Dose: Not Given Warfarin Sodium (Coumadin) 7.5 mg PO DAILY [facility] Last Admin: 07/15/18 09:04 Dose: 7.5 mg Lisinopril 20 mg PO DAILY 07/13/18 Metoprolol Succinate 25 mg PO DAILY 07/13/18 Multivitamin [Multivitamins] 1 tab PO DAILY 07/13/18 Warfarin [Coumadin] 7.5 mg PO DAILY 07/13/18 amLODIPine [Norvasc] 10 mg PO DAILY 07/13/18 Objective - Vital Signs/Intake & Output Reviewed Vital Signs: Yes Vital Signs: Vital Signs x48h Temp Pulse Resp BP Pulse Ox 07/15/18 11:56 37.1 C 109 H 12 140/83 H 93 07/15/18 08:15 37.0 C 94 12 126/81 H 96 07/15/18 05:45 37.2 C 98 16 125/77 96 Intake & Output: Intake & Output 07/12/18 07/13/18 07/14/18 07/15/18 23:59 23:59 23:59 23:59 Intake Total 586 2601.109 2330.000 Output Total 163 457 5978 Balance -314 2021.109 1230.000 - Objective General Appearance: positive: No acute distress, Alert. negative: Lethargic Eyes Bilateral: positive: Normal inspection, PERRL, No lid inflammation, Conjunctivae nml ENT: positive: ENT inspection nml, Pharynx nml, No signs of dehydration. negative: Purulent nasal drainage, Pharyngeal erythema, Oral lesions Neck: positive: Nml inspection, Thyroid nml, No JVD, Trachea midline. negative: Thyromegaly, Lymphadenopathy (R), Lymphadenopathy (L), Stiff neck, Swelling/bruising, Tracheal deviation Respiratory: positive: Chest non-tender, No respiratory distress, Breath sounds nml. negative: Wheezes, Rales, Rhonchi Cardiovascular: positive: Regular rate & rhythm, No murmur, No gallop. negative: Irregularly irregular, Extrasystoles, Tachycardia, Bradycardia, JVD present, Systolic murmur, Diastolic murmur Peripheral Pulses: 2+ Radial (R), 2+ Radial (L), 2+ Dorsalis pedis (R), 2+ Dorsalis pedis (L) Abdomen: positive: Non-tender, No organomegaly, Nml bowel sounds, No distention. negative: Tenderness, Guarding, Rebound Back: positive: Nml inspection. negative: CVA tenderness (R), CVA tenderness (L) Skin: positive: Color nml, No rash, Warm, Dry. negative: Cyanosis, Diaphoresis, Pallor Extremities: positive: Non-tender, Nml appearance. negative: Calf tenderness, Joint swelling, Danielle's sign/cords Neurologic/Psychiatric: positive: Oriented x3, Sensation nml, Mood/affect nml. negative: Weakness, Sensory loss, Facial droop, Slurred/abnml speech, Depressed mood/affect - Lab Results Fish Bones: 07/15/18 06:00 07/15/18 06:00 Other Labs: Lab Results x24hrs 07/15/18 07/15/18 Range/Units 06:00 06:00 WBC 11.8 H (4.8-10.8) x10^3/uL RBC 3.84 L (4.70-6.10) 10^6/uL Hgb 12.2 L (14.0-18.0) g/dL Hct 37.0 L (42.0-52.0) % MCV 96.3 H (80.0-94.0) fL MCH 31.7 H (27.0-31.0) pg MCHC 32.9 (32.0-36.0) g/dL RDW 13.3 (12.0-15.0) % Plt Count 120 L (130-450) 10^3/uL MPV 9.4 (7.4-11.4) fL Neut # (Auto) 10.1 H (1.5-6.6) 10^3/uL Lymph # (Auto) 0.6 L (1.5-3.5) 10^3/uL [place] # (Auto) 0.9 (0.0-1.0) 10^3/uL Eos # (Auto) 0.0 (0.0-0.7) 10^3/uL Baso # (Auto) 0.1 (0.0-0.1) 10^3/uL Absolute Nucleated RBC 0.00 x10^3/uL Nucleated RBC % 0.0 /100WBC Sodium 134 L (135-145) mmol/L Potassium 3.9 (3.5-5.0) mmol/L Chloride 103 (101-111) mmol/L Carbon Dioxide 27 (21-32) mmol/L Anion Gap 4.0 L (6-13) BUN 15 (6-20) mg/dL Creatinine 1.1 (0.6-1.2) mg/dL Estimated GFR (MDRD) 65 L (>89) Glucose 144 H (70-100) mg/dL Calcium 7.2 L (8.5-10.3) mg/dL Total Bilirubin 1.3 H (0.2-1.0) mg/dL AST 22 (10-42) IU/L ALT 14 (10-60) IU/L Alkaline Phosphatase 44 (42-121) IU/L Total Protein 5.6 L (6.7-8.2) g/dL Albumin 3.0 L (3.2-5.5) g/dL Globulin 2.6 (2.1-4.2) g/dL Albumin/Globulin Ratio 1.2 (1.0-2.2) ABX Reporting Has patient been on IV antibiotics over the past 48 hours?: No Sepsis Event Note (H) - Evaluation Current Stage of Sepsis: Ruled out Assessment/Plan - Problem List (1) Status post-operative repair of hip fracture Impression: 07/15, today is status post day one from hip repair. continue pain control, Oxycodone, hydromorphine, Toradol PRN PT/OT evaluation and treatment DVT prophylaxis, pt is on Coumadin pt is on surgery now, will follow up surgeon's recommendation continue pain control continue DVT prophylaxis PT/OT evaluation and treatment (2) Fall at home will educate pt for prevention of fall (3) Atrial fibrillation, chronic 07/15, agree resume of home Coumadin continue beta-alexander continue check PT/INR vital monitor will resume of home Coumadin after discussion with surgeon continue beta-block continue PT/INR check continue tele, vital monitor (4) Hypertension stable, continue home meds vital monitor
[2018-07-15] MEDS ORDERED: ACETAMINOPHEN 325 MG TABLET PO PRN (22:06)
[2018-07-16] MEDS: SODIUM CHLORIDE FLUSH 0.9% 10 ML SYRINGE IVP SCH ×3 (01:05→16:11)
[2018-07-16] MEDS: SODIUM CHLORIDE 0.9% 1,000 ML IV SCH ×2 (01:05→16:14)
[2018-07-16 06:17] LABS: BASOPHILS # (AUTO) 0.1 10^3/uL (0.0-0.1); BASOPHILS % (AUTO) 0.5 %; EOSINOPHILS # (AUTO) 0.3 10^3/uL (0.0-0.7); EOSINOPHILS % (AUTO) 3.1 %; HGB - HEMOGLOBIN 10.9 g/dL (14.0-18.0); LYMPHOCYTES # (AUTO) 0.7 10^3/uL (1.5-3.5); LYMPHOCYTES % (AUTO) 7.3 %; MEAN CORPUSCULAR HEMOGLOBIN 32.1 pg (27.0-31.0); MEAN CORPUSCULAR HGB CONC 33.5 g/dL (32.0-36.0); MEAN CORPUSCULAR VOLUME 95.9 fL (80.0-94.0); MEAN PLATELET VOLUME 9.9 fL (7.4-11.4); MONOCYTES # (AUTO) 0.9 10^3/uL (0.0-1.0); MONOCYTES % (AUTO) 8.8 %; NEUTROPHILS # (AUTO) 7.9 10^3/uL (1.5-6.6); NEUTROPHILS % (AUTO) 80.3 %; PLT - PLATELET COUNT 99 10^3/uL (130-450); RED CELL DISTRIBUTION WIDTH 12.7 % (12.0-15.0); WHITE BLOOD COUNT 9.8 x10^3/uL (4.8-10.8)
[2018-07-16 06:31] LABS: ALBUMIN 2.6 g/dL (3.2-5.5); BILIRUBIN,TOTAL 1.3 mg/dL (0.2-1.0); CALCIUM 7.1 mg/dL (8.5-10.3); CREATININE 1.1 mg/dL (0.6-1.2); TOTAL PROTEIN 5.1 g/dL (6.7-8.2)
[2018-07-16] MEDS ORDERED: VANCOMYCIN INJ 2 GM in SODIUM CHLORIDE 0.9% 500 ML IV SCH (08:00)
[2018-07-16] MEDS ORDERED: VANCOMYCIN PER PHARMACY 1 GM in SODIUM CHLORIDE 0.9% 250 ML IV SCH (08:00)
--- NOTE | 2018-07-16 08:03 | PROVIDER PROGRESS NOTE ---
Subjective - General Admit Date: 07/13/18 Procedure Date: 07/14/18 Post Op Days: 2 Procedure Performed: left hip Bipolar replacement - Review of Systems Wound/Incisions: positive: Dressing dry and intact Drain Type: hemovac. Removed with minimal drainage overnight Musculoskeletal: positive: Joint pain Psychiatric: positive: No symptoms All Other Systems: positive: Reviewed and negative Objective - Patient Data Reviewed Vital Signs: Yes Vital Signs: Vital Signs x48h Temp Pulse Resp BP Pulse Ox 07/16/18 07:29 37 C 89 16 134/78 H 95 07/16/18 04:45 36.7 C 96 16 115/67 97 Weight: Weight 07/14/18 07/15/18 07/16/18 23:59 23:59 23:59 Weight (kg) 113.5 kg 115 kg 115 kg Intake & Output: Intake and Output Totals x24h 07/14/18 07/15/18 07/16/18 23:59 23:59 23:59 Intake Total 2601.109 3453.462 1305.173 Output Total 580 1400 400 Balance 2021.109 2053.462 905.173 - Lab Results Lab Results: 07/16/18 05:45 07/16/18 05:45 Other Lab Results: Lab Results x24hrs 07/16/18 07/16/18 Range/Units 05:45 05:45 WBC 9.8 (4.8-10.8) x10^3/uL RBC 3.40 L (4.70-6.10) 10^6/uL Hgb 10.9 L (14.0-18.0) g/dL Hct 32.6 L (42.0-52.0) % MCV 95.9 H (80.0-94.0) fL MCH 32.1 H (27.0-31.0) pg MCHC 33.5 (32.0-36.0) g/dL RDW 12.7 (12.0-15.0) % Plt Count 99 L (130-450) 10^3/uL MPV 9.9 (7.4-11.4) fL Neut # (Auto) 7.9 H (1.5-6.6) 10^3/uL Lymph # (Auto) 0.7 L (1.5-3.5) 10^3/uL [place] # (Auto) 0.9 (0.0-1.0) 10^3/uL Eos # (Auto) 0.3 (0.0-0.7) 10^3/uL Baso # (Auto) 0.1 (0.0-0.1) 10^3/uL Absolute Nucleated RBC 0.00 x10^3/uL Nucleated RBC % 0.0 /100WBC Sodium 134 L (135-145) mmol/L Potassium 3.8 (3.5-5.0) mmol/L Chloride 102 (101-111) mmol/L Carbon Dioxide 26 (21-32) mmol/L Anion Gap 6.0 (6-13) BUN 14 (6-20) mg/dL Creatinine 1.1 (0.6-1.2) mg/dL Estimated GFR (MDRD) 65 L (>89) Glucose 118 H (70-100) mg/dL Calcium 7.1 L (8.5-10.3) mg/dL Total Bilirubin 1.3 H (0.2-1.0) mg/dL AST 19 (10-42) IU/L ALT 13 (10-60) IU/L Alkaline Phosphatase 45 (42-121) IU/L Total Protein 5.1 L (6.7-8.2) g/dL Albumin 2.6 L (3.2-5.5) g/dL Globulin 2.5 (2.1-4.2) g/dL Albumin/Globulin Ratio 1.0 (1.0-2.2) - Current Medications Current Medications: Current Medications Generic Name Dose Route Start Last Admin Trade Name Oswald PRN Reason Stop Dose Admin Acetaminophen 650 mg 07/15/18 22:06 07/15/18 22:22 Tylenol PO 650 mg Q4HR PRN Administration Pain or Fever > 38C (100.4F) Amlodipine Besylate 10 mg 07/14/18 09:00 07/15/18 09:04 Norvasc PO 10 mg DAILY [facility] Administration Ketorolac Tromethamine 15 mg 07/15/18 11:23 07/15/18 11:38 Toradol Inj (15mg) IVP 07/20/18 11:22 15 mg Q6HR PRN Administration PAIN Lisinopril 20 mg 07/14/18 09:00 11/14/18 09:04 Zestril PO 20 mg DAILY [facility] Administration Metoprolol Succinate 25 mg 07/14/18 08:00 07/15/18 16:11 Toprol Xl PO 25 mg BIDWM [facility] Administration Multivitamins 1 tab 07/14/18 08:00 07/15/18 09:04 Theragran PO 1 tab DAILYWM [facility] Administration Ondansetron HCl 4 mg 07/14/18 19:59 07/14/18 20:22 Zofran Inj IVP 4 mg Q6HR PRN Administration Nausea / Vomiting Oxycodone HCl 5 mg 07/15/18 11:22 07/15/18 21:22 Roxicodone PO 5 mg Q4HR PRN Administration PAIN Polyethylene Glycol 17 gm 07/14/18 09:00 07/15/18 09:05 Miralax PO 17 gm DAILY [facility] Administration Sodium Chloride 10 ml 07/13/18 13:06 07/13/18 19:54 Normal Saline Flush 0.9% IVP 10 ml PRN PRN Administration NEEDED PER PROVIDER ORDERS Sodium Chloride 10 ml 07/13/18 17:00 07/16/18 01:05 Normal Saline Flush 0.9% IVP 10 ml 0100,0900,1700 [facility] Administration Warfarin Sodium 7.5 mg 07/15/18 09:00 07/15/18 09:04 Coumadin PO 7.5 mg DAILY [facility] Administration - Physical Exam Wound/Incisions: positive: Dressing dry and intact General Appearance: positive: No acute distress Extremities: positive: Joint swelling Neurologic/Psychiatric: positive: Oriented x3, CN's nml (2-12), Motor nml, Sensation nml, Mood/affect nml Impression/Plan - Problem List Problem List: POD #2 pt is doing well He had one episode of fever last night, now normal Expected post op fever with surgery Plan to mobilize further today Begin to consider SNF.
[2018-07-16 08:27] LABS: INR 1.2 (0.8-1.2); PT - PROTHROMBIN TIME 12.9 secs (9.9-12.6)
[2018-07-16] MEDS ORDERED: CEFEPIME 2 GM in SODIUM CHLORIDE 0.9% MINIBAG 100 ML IV SCH (09:00)
[2018-07-16] MEDS: amLODIPine 5 MG TABLET PO SCH (09:09)
[2018-07-16] MEDS: POLYETHYLENE GLYCOL 3350 17 GM PACKET PO SCH (09:09)
[2018-07-16] MEDS: WARFARIN 2.5 MG TABLET PO SCH (09:09)
[2018-07-16] MEDS: LISINOPRIL 20 MG TABLET PO SCH (09:10)
[2018-07-16] MEDS: SENNA 8.6 MG TABLET PO SCH (09:10)
[2018-07-16] MEDS: MULTIVITAMIN TABLET PO SCH (09:10)
[2018-07-16] MEDS: METOPROLOL SUCCINATE 25 MG TABLET PO SCH ×2 (09:10→16:11)
[2018-07-16] MEDS: DOCUSATE SODIUM 250 MG CAPSULE PO SCH (09:10)
[2018-07-16] MEDS: oxyCODONE 5 MG TABLET PO PRN ×3 (09:23→22:24)
[2018-07-16] MEDS: KETOROLAC 15 MG/ML VIAL IVP PRN (09:23)
[2018-07-16] MEDS: CEFEPIME 2 GM in SODIUM CHLORIDE 0.9% MINIBAG 100 ML IV SCH ×2 (12:20→20:38)
--- NOTE | 2018-07-16 15:58 | PROVIDER PROGRESS NOTE ---
Subjective - Prog Note Date Prog Note Date: 07/16/18 - Subjective Pt reports feeling: Worse Subjective: pt had fever on last night at 38.9 degree. Pt state he feel better "normal now" after treatment with antibiotic. pt report pain when he move his leg. he denies chest pain, SOB. Current Medications - Current Medications Current Medications: Active Medications Acetaminophen (Tylenol) 650 mg PO Q4HR PRN PRN Reason: Pain or Fever > 38C (100.4F) Last Admin: 07/15/18 22:22 Dose: 650 mg Amlodipine Besylate (Norvasc) 10 mg PO DAILY [facility] Last Admin: 07/16/18 09:09 Dose: 10 mg Docusate Sodium (Colace 250mg Capsule) 250 - 500 mg PO DAILY [facility] Last Admin: 07/16/18 09:10 Dose: 250 mg Cefepime HCl 2 gm/ Sodium (Chloride) 100 mls @ 200 mls/hr IV BID [facility] Last Infusion: 07/16/18 12:30 Dose: Infused Sodium Chloride (Normal Saline 0.9%) 1,000 mls @ 85 mls/hr IV .[id number] [facility] Ketorolac Tromethamine (Toradol Inj (15mg)) 15 mg IVP Q6HR PRN PRN Reason: PAIN Stop: 07/20/18 11:22 Last Admin: 07/16/18 09:23 Dose: 15 mg Lisinopril (Zestril) 20 mg PO DAILY [facility] Last Admin: 07/16/18 09:10 Dose: 20 mg Metoprolol Succinate (Toprol Xl) 25 mg PO BIDWM [facility] Last Admin: 07/16/18 09:10 Dose: 25 mg Multivitamins (Theragran) 1 tab PO DAILYWM [facility] Last Admin: 07/16/18 09:10 Dose: 1 tab Ondansetron HCl (Zofran Inj) 4 mg IVP Q6HR PRN PRN Reason: Nausea / Vomiting Last Admin: 07/14/18 20:22 Dose: 4 mg Oxycodone HCl (Roxicodone) 5 mg PO Q4HR PRN PRN Reason: PAIN Last Admin: 07/16/18 14:14 Dose: 5 mg Polyethylene Glycol (Miralax) 17 gm PO DAILY [facility] Last Admin: 07/16/18 09:09 Dose: 17 gm Senna (Senokot) 8.6 - 17.2 mg PO DAILY [facility] Last Admin: 07/16/18 09:10 Dose: 17.2 mg Sodium Chloride (Normal Saline Flush 0.9%) 10 ml IVP PRN PRN PRN Reason: NEEDED PER PROVIDER ORDERS Last Admin: 07/13/18 19:54 Dose: 10 ml Sodium Chloride (Normal Saline Flush 0.9%) 10 ml IVP 0100,0900,1700 [facility] Last Admin: 07/16/18 14:14 Dose: 10 ml Warfarin Sodium (Coumadin) 7.5 mg PO DAILY [facility] Last Admin: 07/16/18 09:09 Dose: 7.5 mg Lisinopril 20 mg PO DAILY 07/13/18 Metoprolol Succinate 25 mg PO DAILY 07/13/18 Multivitamin [Multivitamins] 1 tab PO DAILY 07/13/18 Warfarin [Coumadin] 7.5 mg PO DAILY 07/13/18 amLODIPine [Norvasc] 10 mg PO DAILY 07/13/18 Objective - Vital Signs/Intake & Output Reviewed Vital Signs: Yes Vital Signs: Vital Signs x48h Temp Pulse Resp BP BP Pulse Ox 07/16/18 15:52 36.7 C 87 16 119/60 97 07/16/18 12:14 36.5 C 81 16 125/66 97 Intake & Output: Intake & Output 07/13/18 07/14/18 07/15/18 07/16/18 23:59 23:59 23:59 23:59 Intake Total 586 2601.109 3453.462 3265.173 Output Total 979 338 4472 875 Balance -314 2021.109 2053.462 2390.173 - Objective General Appearance: positive: No acute distress, Alert. negative: Lethargic Eyes Bilateral: positive: Normal inspection, PERRL, No lid inflammation, Conjunctivae nml ENT: positive: ENT inspection nml, Pharynx nml, No signs of dehydration. negative: Purulent nasal drainage, Pharyngeal erythema, Oral lesions Neck: positive: Nml inspection, Thyroid nml, No JVD, Trachea midline. negative: Thyromegaly, Lymphadenopathy (R), Lymphadenopathy (L), Stiff neck, Swelling/bruising, Tracheal deviation Respiratory: positive: Chest non-tender, No respiratory distress, Breath sounds nml. negative: Wheezes, Rales, Rhonchi Cardiovascular: positive: Regular rate & rhythm, No murmur, No gallop. negative: Irregularly irregular, Extrasystoles, Tachycardia, Bradycardia, JVD present, Systolic murmur, Diastolic murmur Peripheral Pulses: 2+ Radial (R), 2+ Radial (L), 2+ Dorsalis pedis (R), 2+ Dorsalis pedis (L) Abdomen: positive: Non-tender, No organomegaly, Nml bowel sounds, No distention. negative: Tenderness, Guarding, Rebound Back: positive: Nml inspection. negative: CVA tenderness (R), CVA tenderness (L) Skin: positive: Color nml, No rash, Warm, Dry. negative: Cyanosis, Diaphoresis, Pallor Extremities: positive: Non-tender, Nml appearance. negative: Calf tenderness, Joint swelling, Danielle's sign/cords Neurologic/Psychiatric: positive: Oriented x3, Sensation nml, Mood/affect nml. negative: Weakness, Sensory loss, Facial droop, Slurred/abnml speech, Depressed mood/affect - Lab Results Fish Bones: 07/16/18 05:45 07/16/18 05:45 Other Labs: Lab Results x24hrs 07/16/18 07/16/18 07/16/18 Range/Units 08:07 08:07 05:45 WBC (4.8-10.8) x10^3/uL RBC (4.70-6.10) 10^6/uL Hgb (14.0-18.0) g/dL Hct (42.0-52.0) % MCV (80.0-94.0) fL MCH (27.0-31.0) pg MCHC (32.0-36.0) g/dL RDW (12.0-15.0) % Plt Count (130-450) 10^3/uL MPV (7.4-11.4) fL Neut # (Auto) (1.5-6.6) 10^3/uL Lymph # (Auto) (1.5-3.5) 10^3/uL [place] # (Auto) (0.0-1.0) 10^3/uL Eos # (Auto) (0.0-0.7) 10^3/uL Baso # (Auto) (0.0-0.1) 10^3/uL Absolute Nucleated RBC x10^3/uL Nucleated RBC % /100WBC PT 12.9 H (9.9-12.6) secs INR 1.2 (0.8-1.2) Sodium 134 L (135-145) mmol/L Potassium 3.8 (3.5-5.0) mmol/L Chloride 102 (101-111) mmol/L Carbon Dioxide 26 (21-32) mmol/L Anion Gap 6.0 (6-13) BUN 14 (6-20) mg/dL Creatinine 1.1 (0.6-1.2) mg/dL Estimated GFR (MDRD) 65 L (>89) Glucose 118 H (70-100) mg/dL Lactic Acid 0.9 (0.5-2.2) mmol/L Calcium 7.1 L (8.5-10.3) mg/dL Total Bilirubin 1.3 H (0.2-1.0) mg/dL AST 19 (10-42) IU/L ALT 13 (10-60) IU/L Alkaline Phosphatase 45 (42-121) IU/L Total Protein 5.1 L (6.7-8.2) g/dL Albumin 2.6 L (3.2-5.5) g/dL Globulin 2.5 (2.1-4.2) g/dL Albumin/Globulin Ratio 1.0 (1.0-2.2) 07/16/18 Range/Units 05:45 WBC 9.8 (4.8-10.8) x10^3/uL RBC 3.40 L (4.70-6.10) 10^6/uL Hgb 10.9 L (14.0-18.0) g/dL Hct 32.6 L (42.0-52.0) % MCV 95.9 H (80.0-94.0) fL MCH 32.1 H (27.0-31.0) pg MCHC 33.5 (32.0-36.0) g/dL RDW 12.7 (12.0-15.0) % Plt Count 99 L (130-450) 10^3/uL MPV 9.9 (7.4-11.4) fL Neut # (Auto) 7.9 H (1.5-6.6) 10^3/uL Lymph # (Auto) 0.7 L (1.5-3.5) 10^3/uL [place] # (Auto) 0.9 (0.0-1.0) 10^3/uL Eos # (Auto) 0.3 (0.0-0.7) 10^3/uL Baso # (Auto) 0.1 (0.0-0.1) 10^3/uL Absolute Nucleated RBC 0.00 x10^3/uL Nucleated RBC % 0.0 /100WBC PT (9.9-12.6) secs INR (0.8-1.2) Sodium (135-145) mmol/L Potassium (3.5-5.0) mmol/L Chloride (101-111) mmol/L Carbon Dioxide (21-32) mmol/L Anion Gap (6-13) BUN (6-20) mg/dL Creatinine (0.6-1.2) mg/dL Estimated GFR (MDRD) (>89) Glucose (70-100) mg/dL Lactic Acid (0.5-2.2) mmol/L Calcium (8.5-10.3) mg/dL Total Bilirubin (0.2-1.0) mg/dL AST (10-42) IU/L ALT (10-60) IU/L Alkaline Phosphatase (42-121) IU/L Total Protein (6.7-8.2) g/dL Albumin (3.2-5.5) g/dL Globulin (2.1-4.2) g/dL Albumin/Globulin Ratio (1.0-2.2) ABX Reporting Has patient been on IV antibiotics over the past 48 hours?: Yes Sepsis Event Note (H) - Evaluation Current Stage of Sepsis: Ruled out Assessment/Plan - Problem List (1) Status post-operative repair of hip fracture Impression: (1) Status post-operative repair of hip fracture Impression: 07/16, continue PT/OT , continue pain control. 07/15, today is status post day one from hip repair. continue pain control, Oxycodone, hydromorphine, Toradol PRN PT/OT evaluation and treatment DVT prophylaxis, pt is on Coumadin pt is on surgery now, will follow up surgeon's recommendation continue pain control continue DVT prophylaxis PT/OT evaluation and treatment (2) Fall at home will educate pt for prevention of fall (3) Atrial fibrillation, chronic 07/16, stable, continue Coumadin, check PT/INR, also as DVT prophylaxis 07/15, agree resume of home Coumadin continue beta-alexander continue check PT/INR vital monitor will resume of home Coumadin after discussion with surgeon continue beta-block continue PT/INR check continue tele, vital monitor (4) Hypertension stable, continue home meds vital monitor (5) fever many causes for postoperation fever in the first week. Nosocomial infection are common during the period. CXR, and incentive spirometry add cefepime blood culture
[2018-07-17] MEDS: oxyCODONE 5 MG TABLET PO PRN ×3 (03:09→16:33)
[2018-07-17] MEDS: SODIUM CHLORIDE 0.9% 1,000 ML IV SCH (04:43)
[2018-07-17] MEDS: SODIUM CHLORIDE FLUSH 0.9% 10 ML SYRINGE IVP SCH ×2 (04:44→08:43)
[2018-07-17 06:24] LABS: INR 1.4 (0.8-1.2); PT - PROTHROMBIN TIME 15.3 secs (9.9-12.6)
[2018-07-17 07:58] LABS: ALBUMIN 2.5 g/dL (3.2-5.5); BILIRUBIN,TOTAL 1.2 mg/dL (0.2-1.0); TOTAL PROTEIN 5.1 g/dL (6.7-8.2)
[2018-07-17 08:20] LABS: BASOPHILS # (AUTO) 0.1 10^3/uL (0.0-0.1); BASOPHILS % (AUTO) 0.8 %; EOSINOPHILS # (AUTO) 0.3 10^3/uL (0.0-0.7); EOSINOPHILS % (AUTO) 3.6 %; HGB - HEMOGLOBIN 10.6 g/dL (14.0-18.0); LYMPHOCYTES # (AUTO) 0.7 10^3/uL (1.5-3.5); MEAN CORPUSCULAR HEMOGLOBIN 32.2 pg (27.0-31.0); MEAN CORPUSCULAR HGB CONC 34.6 g/dL (32.0-36.0); MEAN CORPUSCULAR VOLUME 93.2 fL (80.0-94.0); MEAN PLATELET VOLUME 10.5 fL (7.4-11.4); MONOCYTES # (AUTO) 0.9 10^3/uL (0.0-1.0); MONOCYTES % (AUTO) 9.1 %; NEUTROPHILS # (AUTO) 7.7 10^3/uL (1.5-6.6); NEUTROPHILS % (AUTO) 79.5 %; PLT - PLATELET COUNT 113 10^3/uL (130-450); RED BLOOD COUNT 3.29 10^6/uL (4.70-6.10); RED CELL DISTRIBUTION WIDTH 12.8 % (12.0-15.0); WHITE BLOOD COUNT 9.7 x10^3/uL (4.8-10.8)
--- NOTE | 2018-07-17 08:39 | XRAY Report ---
Reason: fever Procedure Date: 07/16/2018 Accession Number: [id number] / [id number] Procedure: XR - Chest 1 View X-Ray CPT Code: 60550 FULL RESULT: EXAM: CHEST RADIOGRAPHY EXAM DATE: 07/16/2018 07:59 AM. CLINICAL HISTORY: Fever. COMPARISON: 07/14/2018. TECHNIQUE: 1 view. FINDINGS: Lungs/Pleura: Mild bibasilar atelectasis. No pleural effusion. No pneumothorax. Mediastinum: Mild cardiomegaly. Calcified ectatic aorta Other: DJD spine, shoulders IMPRESSION: 1. Mild bibasilar atelectasis RADIA
[2018-07-17] MEDS: WARFARIN 2.5 MG TABLET PO SCH (08:41)
[2018-07-17] MEDS: DOCUSATE SODIUM 250 MG CAPSULE PO SCH (08:41)
[2018-07-17] MEDS: amLODIPine 5 MG TABLET PO SCH (08:42)
[2018-07-17] MEDS: SENNA 8.6 MG TABLET PO SCH (08:42)
[2018-07-17] MEDS: METOPROLOL SUCCINATE 25 MG TABLET PO SCH (08:42)
[2018-07-17] MEDS: CEFEPIME 2 GM in SODIUM CHLORIDE 0.9% MINIBAG 100 ML IV SCH (08:42)
[2018-07-17] MEDS: LISINOPRIL 20 MG TABLET PO SCH (08:42)
[2018-07-17] MEDS: MULTIVITAMIN TABLET PO SCH (08:42)
[2018-07-17] MEDS: POLYETHYLENE GLYCOL 3350 17 GM PACKET PO SCH (08:43)
--- NOTE | 2018-07-17 10:32 | Discharge Plan ---
"Discharge Plan for SNF / RESIDENTIAL - Discharge Plan And Transition Orders Disposition: 03 SNF DC/Xfer Condition: Poor Allergies and Adverse Reactions: Allergies Allergy/AdvReac Type Severity Reaction Status Date / Time No Known Drug Allergies Allergy Verified 07/13/18 11:06 - SNF / RESIDENTIAL Transition Orders Admit to (Facility): [facility] Under the care of (Name): China Olivas Discharge Diagnosis: status post operation repair of left hip fracture, a-Fib with Coumadin, HTN Medicare Certification Statement: I certify that Post Hospital senior care care is medically necessary on a continuing basis for any of the conditions for which she/he is receiving care during hospitalization. Notify PCP of admission and forward orders to primary provider for signature. Weight on admission and: Daily Call PCP immediately if weight increases by: 2 kg Other Notification Orders: Call PCP immediately if patient develops dyspnea, chest pain/tightness or edema. House Bowel Program: Yes Additional Bowel Program Orders: If no BM after 2 days, nurse may give M.O.M. 30ml PO PRN and/or ducolax Supp 1 NH and/or PATRICIA 250mg P.O., and/or senna 1-2 tabs PO. On day 3 nurse may give repeat above order until residents constipation is resolved. Annual Influenza Vaccine (between May 02 and November 29): Yes Two-step PPD per [facility] [id number] or approved exception documents: Yes Treatments & Other Orders: pt may follow up his PCP, China Olivas, when pt is arrival to [facility], may follow up orthopedics office in two weeks, may continue PT/OT in SNF Lab Tests or X-ray Orders: may follow up PCP as needed Medication Orders: PLEASE REFER TO THE DISCHARGE MEDICATION LIST. Insulin Orders?: No - Medications New Prescriptions: oxyCODONE [Roxicodone] 5 mg PO Q4HR PRN #20 tablet PRN Reason: Pain - Diet Type: Geriatric Texture: Regular Liquids: Thin May have monthly special meal: Yes - Therapies | Activity Therapy: Evaluation | Treat if indicated: PT, OT Rehabilitation Potential: Maximize functional status Activity: Activity as Tolerated Additional Instructions: pt may follow up his PCP, China Olivas, when pt is arrival to [facility], may follow up orthopedics office in two weeks, may continue PT/OT in SNF"
[2018-07-17] MEDS ORDERED: CALCIUM CITRATE 250 MG TABLET PO SCH (11:00)
--- NOTE | 2018-07-17 11:06 | DISCHARGE SUMMARY ---
"Discharge Summary Discharge Date: 07/17/18 Discharging Provider: BEAUCHAMP Primary Care Provider: China Olivas Condition at Discharge: Poor Discharge Disposition: 03 SNF DC/Xfer Discharge Facility Name: [facility] - DIAGNOSES Admission Diagnoses: (1) Preop exam for internal medicine (2) Fracture of femoral neck, left (3) Fall at home (4) Atrial fibrillation, chronic (5) Anticoagulated on warfarin (6) Hypertension Discharge Diagnoses with Status of Each Condition: (1) Status post-operative repair of hip fracture Per PT/OT, and Orthopedics surgeon recommends, pt is d/c to [facility] today f or continuing PT/OT training, Pt may followup orthopedics in two weeks and followup PCP when pt is arrival to [facility] (2) Fall at home educate pt for prevention (3) Atrial fibrillation, chronic stable, continue home meds Coumadin (4) Hypertension stable, continue home regimen, followup PCP (5) fever resolved. - HPI History of Present Illness: refer from Ms. Ashraf's HPI on 07/13/18 as the following: Mulugeta Valladares is a 78-year old male with a past medical history of hypertension, chronic a-fib on coumadin, chronic hearing loss, BPH, nocturia, left knee arthritis, left knee replacement, and venous insufficiency. He was wearing his slippery, rubber croc shoes outside with is contractor near by when he accidentally slipped on whelan that grew on a cement slab outside of his garage doorstep. He did not loose consciousness, and can recall falling directly onto his left hip, and immediately had pain with an inability to get up. Luckily his contractor was able to aide him in calling 911. Once in the ED, imaging confirmed a left femoral neck fracture, so Dr. Ashby, Ortho surgery was contacted who will plan to repair the left hip after the patient's INR is sub- therapeutic below 1.7. Labs were unremarkable and on exam the patient has no co mplaints and denies chest pain, nausea, vomiting, rashes, fevers, chills, a new cough, orthopnea, shortness of breath or dizziness. He will be admitted to inpatient to the Hospitalist service and orthosurgery consulting. - CONSULTS | PROCEDURES Consultations: orthopedics surgeon, Dr. Ashby Procedures: left hip repair - HOSPITAL COURSE Hospital Course: pt was admitted in hospital for left hip repair after he had fall and left hip fracture. Pt continue to have PT/OT evaluation and treatment. Dr. Ashby release pt to be d/c to SNF today. - ALLERGIES Allergies/Adverse Reactions: Allergies Allergy/AdvReac Type Severity Reaction Status Date / Time No Known Drug Allergies Allergy Verified 07/13/18 11:06 - MEDICATIONS Home Medications: Ambulatory Orders Medication Instructions Recorded Confirmed Lisinopril 20 mg PO DAILY 07/13/18 07/13/18 Metoprolol Succinate 25 mg PO DAILY 07/13/18 07/13/18 Multivitamin [Multivitamins] 1 tab PO DAILY 07/13/18 07/13/18 Warfarin [Coumadin] 7.5 mg PO DAILY 07/13/18 07/13/18 amLODIPine [Norvasc] 10 mg PO DAILY 07/13/18 07/13/18 oxyCODONE [Roxicodone] 5 mg PO Q4HR PRN #20 tablet 07/17/18 - PHYSICAL EXAM AT DISCHARGE General Appearance: positive: No acute distress, Alert. negative: Lethargic Eyes Bilateral: positive: Normal inspection, PERRL, No lid inflammation, C onjunctivae nml ENT: positive: ENT inspection nml, Pharynx nml, No signs of dehydration. negative: Purulent nasal drainage, Pharyngeal erythema, Oral lesions Neck: positive: Nml inspection, Thyroid nml, No JVD, Trachea midline. negative: Thyromegaly, Lymphadenopathy (R), Lymphadenopathy (L), Stiff neck, Swelling/bruising, Tracheal deviation Respiratory: positive: Chest non-tender, No respiratory distress, Breath sounds nml. negative: Wheezes, Rales, Rhonchi Cardiovascular: positive: Regular rate & rhythm, No murmur, No gallop. negative: Irregularly irregular, Extrasystoles, Tachycardia, Bradycardia, JVD present, Systolic murmur, Diastolic murmur Peripheral Pulses: positive: 2+ Abdomen: positive: Non-tender, No organomegaly, Nml bowel sounds, No distention. negative: Tenderness, Guarding, Rebound Back: positive: Nml inspection. negative: CVA tenderness (R), CVA tenderness (L) Skin: positive: Color nml, No rash, Warm, Dry. negative: Cyanosis, Diaphoresis, Pallor Extremities: positive: Non-tender, Nml appearance. negative: Calf tenderness, Joint swelling, Danielle's sign/cords Neurologic/Psychiatric: positive: Oriented x3, Sensation nml, Mood/affect nml. negative: Weakness, Sensory loss, Facial droop, Slurred/abnml speech, Depressed mood/affect - LABS Result Diagrams: 07/17/18 06:05 07/17/18 06:05 - SEPSIS Current Stage of Sepsis: Ruled out - FOLLOW UP Follow Up: pt may follow up his PCP, China Olivas, when pt is arrival to [facility], may follow up orthopedics office in two weeks, may continue PT/OT in SNF Keep dressing on hip and only change weekly. PT: weight bear as tolerated and total hip precautions. - TIME SPENT Time Spent in Discharge (Minutes): 50"
--- NOTE | 2018-07-17 12:08 | PROVIDER PROGRESS NOTE ---
Subjective - General Admit Date: 07/13/18 Procedure Date: 07/14/18 Post Op Days: 3 Procedure Performed: left hip Bipolar replacement - Review of Systems Wound/Incisions: positive: Dressing dry and intact Musculoskeletal: positive: Joint pain Psychiatric: positive: No symptoms All Other Systems: positive: Reviewed and negative Objective - Patient Data Reviewed Vital Signs: Yes Vital Signs: Vital Signs x48h Temp Pulse Pulse Resp BP Pulse Ox 07/17/18 08:25 36.8 C 100 16 149/68 H 95 07/17/18 04:10 36.8 C 83 16 118/59 L 95 Weight: Weight 07/15/18 07/16/18 07/17/18 23:59 23:59 23:59 Weight (kg) 115 kg 115 kg 116 kg Intake & Output: Intake and Output Totals x24h 07/15/18 07/16/18 07/17/18 23:59 23:59 23:59 Intake Total 3453.462 4165.173 2440 Output Total 1400 1375 2200 Balance 2053.462 2790.173 240 - Lab Results Lab Results: 07/17/18 06:05 07/17/18 06:05 Other Lab Results: Lab Results x24hrs 07/17/18 07/17/18 07/17/18 Range/Units 06:05 06:05 06:05 WBC 9.7 (4.8-10.8) x10^3/uL RBC 3.29 L (4.70-6.10) 10^6/uL Hgb 10.6 L (14.0-18.0) g/dL Hct 30.7 L (42.0-52.0) % MCV 93.2 (80.0-94.0) fL MCH 32.2 H (27.0-31.0) pg MCHC 34.6 (32.0-36.0) g/dL RDW 12.8 (12.0-15.0) % Plt Count 113 L (130-450) 10^3/uL MPV 10.5 (7.4-11.4) fL Neut # (Auto) 7.7 H (1.5-6.6) 10^3/uL Lymph # (Auto) 0.7 L (1.5-3.5) 10^3/uL [place] # (Auto) 0.9 (0.0-1.0) 10^3/uL Eos # (Auto) 0.3 (0.0-0.7) 10^3/uL Baso # (Auto) 0.1 (0.0-0.1) 10^3/uL Absolute Nucleated RBC 0.00 x10^3/uL Nucleated RBC % 0.0 /100WBC PT 15.3 H (9.9-12.6) secs INR 1.4 H (0.8-1.2) Sodium 134 L (135-145) mmol/L Potassium 3.9 (3.5-5.0) mmol/L Chloride 103 (101-111) mmol/L Carbon Dioxide 25 (21-32) mmol/L Anion Gap 6.0 (6-13) BUN 13 (6-20) mg/dL Creatinine 1.0 (0.6-1.2) mg/dL Estimated GFR (MDRD) 72 L (>89) Glucose 106 H (70-100) mg/dL Calcium 7.0 L (8.5-10.3) mg/dL Magnesium (1.7-2.8) mg/dL Total Bilirubin 1.2 H (0.2-1.0) mg/dL AST 20 (10-42) IU/L ALT 13 (10-60) IU/L Alkaline Phosphatase 43 (42-121) IU/L Total Protein 5.1 L (6.7-8.2) g/dL Albumin 2.5 L (3.2-5.5) g/dL Globulin 2.6 (2.1-4.2) g/dL Albumin/Globulin Ratio 1.0 (1.0-2.2) 07/17/18 Range/Units 06:05 WBC (4.8-10.8) x10^3/uL RBC (4.70-6.10) 10^6/uL Hgb (14.0-18.0) g/dL Hct (42.0-52.0) % MCV (80.0-94.0) fL MCH (27.0-31.0) pg MCHC (32.0-36.0) g/dL RDW (12.0-15.0) % Plt Count (130-450) 10^3/uL MPV (7.4-11.4) fL Neut # (Auto) (1.5-6.6) 10^3/uL Lymph # (Auto) (1.5-3.5) 10^3/uL [place] # (Auto) (0.0-1.0) 10^3/uL Eos # (Auto) (0.0-0.7) 10^3/uL Baso # (Auto) (0.0-0.1) 10^3/uL Absolute Nucleated RBC x10^3/uL Nucleated RBC % /100WBC PT (9.9-12.6) secs INR (0.8-1.2) Sodium (135-145) mmol/L Potassium (3.5-5.0) mmol/L Chloride (101-111) mmol/L Carbon Dioxide (21-32) mmol/L Anion Gap (6-13) BUN (6-20) mg/dL Creatinine (0.6-1.2) mg/dL Estimated GFR (MDRD) (>89) Glucose (70-100) mg/dL Calcium (8.5-10.3) mg/dL Magnesium 1.9 (1.7-2.8) mg/dL Total Bilirubin (0.2-1.0) mg/dL AST (10-42) IU/L ALT (10-60) IU/L Alkaline Phosphatase (42-121) IU/L Total Protein (6.7-8.2) g/dL Albumin (3.2-5.5) g/dL Globulin (2.1-4.2) g/dL Albumin/Globulin Ratio (1.0-2.2) - Current Medications Current Medications: Current Medications Generic Name Dose Route Start Last Admin Trade Name Freq PRN Reason Stop Dose Admin Acetaminophen 650 mg 07/15/18 22:06 07/15/18 22:22 Tylenol PO 650 mg Q4HR PRN Administration Pain or Fever > 38C (100.4F) Amlodipine Besylate 10 mg 07/14/18 09:00 07/17/18 08:42 Norvasc PO 10 mg DAILY ELVIRA Administration Calcium Citrate 250 mg 07/17/18 11:00 07/17/18 11:23 PO 250 mg DAILY ELVIRA Administration Docusate Sodium 250 - 500 mg 07/16/18 09:00 07/17/18 08:41 Colace 250mg Capsule PO 250 mg DAILY ELVIRA Administration Cefepime HCl 2 gm/ Sodium 100 mls @ 200 mls/hr 07/16/18 11:00 07/17/18 09:37 Chloride IV Infused BID [facility] Infusion Ketorolac Tromethamine 15 mg 07/15/18 11:23 07/16/18 09:23 Toradol Inj (15mg) IVP 07/20/18 11:22 15 mg Q6HR PRN Administration PAIN Lisinopril 20 mg 07/14/18 09:00 07/17/18 08:42 Zestril PO 20 mg DAILY ELVIRA Administration Metoprolol Succinate 25 mg 07/14/18 08:00 07/17/18 08:42 Toprol Xl PO 25 mg BIDWM [facility] Administration Multivitamins 1 tab 07/14/18 08:00 07/17/18 08:42 Theragran PO 1 tab DAILYWM ELVIRA Administration Ondansetron HCl 4 mg 07/14/18 19:59 07/14/18 20:22 Zofran Inj IVP 4 mg Q6HR PRN Administration Nausea / Vomiting Oxycodone HCl 5 mg 07/15/18 11:22 07/17/18 08:52 Roxicodone PO 5 mg Q4HR PRN Administration PAIN Polyethylene Glycol 17 gm 07/14/18 09:00 07/17/18 08:43 Miralax PO 17 gm DAILY [facility] Administration Senna 8.6 - 17.2 mg 07/16/18 09:00 07/17/18 08:42 Senokot PO 17.2 mg DAILY ELVIRA Administration Sodium Chloride 10 ml 07/13/18 13:06 07/13/18 19:54 Normal Saline Flush 0.9% IVP 10 ml PRN PRN Administration NEEDED PER PROVIDER ORDERS Sodium Chloride 10 ml 07/13/18 17:00 07/17/18 08:43 Normal Saline Flush 0.9% IVP Not Given 0100,0900,1700 [facility] Warfarin Sodium 7.5 mg 07/15/18 09:00 07/17/18 08:41 Coumadin PO 7.5 mg DAILY ELVIRA Administration - Physical Exam Wound/Incisions: positive: Dressing dry and intact General Appearance: positive: No acute distress Abdomen: positive: Non-tender Extremities: positive: Joint swelling Impression/Plan - Problem List Problem List: POD #3 Pt is improving and showing no surgical complication Rec. SNF placement. RTC ORTHO within 2 wks. Keep dressing on hip and only change weekly. PT: weight bear as tolerated and total hip precautions.
[2018-07-17 15:38] VITALS: BP 123/64
== END 2018-07-17 16:35 | DRG 470 ==
LOC: EDUNIT# → ED 10:48 → MS2 13:06
PROVIDERS: ADMIT Nurse Practitioner; ATTEND Nurse Practitioner Gerontology
PROC: 30233K1 Transfusion of Nonautologous Frozen Plasma into Peripheral Vein, Percutaneous Approach (ICD-10-PCS; 2018-07-13)
PROC: 0SRS01A Replacement of Left Hip Joint, Femoral Surface with Metal Synthetic Substitute, Uncemented, Open Approach (ICD-10-PCS; principal; 2018-07-14 13:35)
DX: S72.002A Fracture of unspecified part of neck of left femur, initial encounter for closed fracture (principal); W01.0XXA Fall on same level from slipping, tripping and stumbling without subsequent striking against object, initial encounter; Y92.008 Other place in unspecified non-institutional (private) residence as the place of occurrence of the external cause; R50.82 Postprocedural fever; I48.2 Chronic atrial fibrillation; I11.9 Hypertensive heart disease without heart failure; I87.2 Venous insufficiency (chronic) (peripheral); I77.819 Aortic ectasia, unspecified site; Z96.652 Presence of left artificial knee joint; Z79.01 Long term (current) use of anticoagulants; Z79.899 Other long term (current) drug therapy
CPT/HCPCS: 36415; 71045; 80048; 80053; 81001; 83036; 83605; 83735; 84100; 85025; 85610; 86900; 86901; 87040; 87086; 96374; 99283; 99284

== ENCOUNTER 2018-07-24 22:15 | Outpatient (CLI) | payer MEDICARE, OTHER ==
[2018-07-25 01:55] LABS: BASOPHILS # (AUTO) 0.2 10^3/uL (0.0-0.1); BASOPHILS % (AUTO) 1.2 %; EOSINOPHILS # (AUTO) 0.3 10^3/uL (0.0-0.7); EOSINOPHILS % (AUTO) 1.8 %; HGB - HEMOGLOBIN 11.4 g/dL (14.0-18.0); LYMPHOCYTES # (AUTO) 1.1 10^3/uL (1.5-3.5); LYMPHOCYTES % (AUTO) 7.4 %; MEAN CORPUSCULAR HEMOGLOBIN 31.2 pg (27.0-31.0); MEAN CORPUSCULAR HGB CONC 34.1 g/dL (32.0-36.0); MEAN CORPUSCULAR VOLUME 91.5 fL (80.0-94.0); MEAN PLATELET VOLUME 9.4 fL (7.4-11.4); MONOCYTES # (AUTO) 1.1 10^3/uL (0.0-1.0); MONOCYTES % (AUTO) 7.4 %; NEUTROPHILS % (AUTO) 82.2 %; PLT - PLATELET COUNT 422 10^3/uL (130-450); RED BLOOD COUNT 3.66 10^6/uL (4.70-6.10); RED CELL DISTRIBUTION WIDTH 12.7 % (12.0-15.0); WHITE BLOOD COUNT 14.6 x10^3/uL (4.8-10.8)
== END 2018-07-24 22:16 | disposition home or self-care (01) ==
LOC: LAB.R 22:15
PROVIDERS: ATTEND Family Medicine
DX: I10 Essential (primary) hypertension (principal); T81.40XD Infection following a procedure, unspecified, subsequent encounter
CPT/HCPCS: 80048; 85025

== ENCOUNTER 2018-08-03 14:37 | Outpatient (CLI) | payer MEDICARE, OTHER | END 2018-08-03 14:38 | disposition home or self-care (01) | LOC: LAB.F 14:37 | PROVIDERS: ATTEND Pharmacist | DX: Z79.01 Long term (current) use of anticoagulants (principal); I48.0 Paroxysmal atrial fibrillation | CPT/HCPCS: 85610 ==

== ENCOUNTER 2018-08-24 11:29 | Outpatient (CLI) | payer MEDICARE, OTHER | END 2018-08-24 11:30 | disposition home or self-care (01) | LOC: LAB.F 11:29 | PROVIDERS: ATTEND Pharmacist | DX: Z79.01 Long term (current) use of anticoagulants (principal); I48.0 Paroxysmal atrial fibrillation | CPT/HCPCS: 85610 ==

== ENCOUNTER 2018-09-04 14:24 | Outpatient (CLI) | payer MEDICARE, OTHER | END 2018-09-04 14:25 | disposition home or self-care (01) | LOC: LAB.F 14:24 | PROVIDERS: ATTEND Pharmacist | DX: I48.0 Paroxysmal atrial fibrillation (principal); Z79.01 Long term (current) use of anticoagulants | CPT/HCPCS: 85610 ==

== ENCOUNTER 2018-09-28 13:19 | Outpatient (CLI) | payer MEDICARE, OTHER | END 2018-09-28 13:20 | disposition home or self-care (01) | LOC: LAB.F 13:19 | PROVIDERS: ATTEND Pharmacist | DX: I48.0 Paroxysmal atrial fibrillation (principal); Z79.01 Long term (current) use of anticoagulants | CPT/HCPCS: 85610 ==

== ENCOUNTER 2018-10-15 13:01 | Outpatient (CLI) | payer MEDICARE, OTHER | END 2018-10-15 13:02 | disposition home or self-care (01) | LOC: LAB.F 13:01 | PROVIDERS: ATTEND Pharmacist | DX: I48.0 Paroxysmal atrial fibrillation (principal); Z79.01 Long term (current) use of anticoagulants | CPT/HCPCS: 85610 ==

== ENCOUNTER 2018-11-10 13:41 | Outpatient (CLI) | payer MEDICARE, OTHER | END 2018-11-10 13:42 | disposition home or self-care (01) | LOC: LAB.F 13:41 | PROVIDERS: ATTEND Pharmacist | DX: I48.0 Paroxysmal atrial fibrillation (principal); Z79.01 Long term (current) use of anticoagulants | CPT/HCPCS: 85610 ==

== ENCOUNTER 2018-12-16 13:43 | Outpatient (CLI) | payer MEDICARE, OTHER | END 2018-12-16 13:44 | disposition home or self-care (01) | LOC: LAB.F 13:43 | PROVIDERS: ATTEND Pharmacist | DX: I48.0 Paroxysmal atrial fibrillation (principal); Z79.01 Long term (current) use of anticoagulants | CPT/HCPCS: 85610 ==

== ENCOUNTER 2019-01-14 13:27 | Outpatient (CLI) | payer MEDICARE, OTHER | END 2019-01-14 13:28 | disposition home or self-care (01) | LOC: LAB.F 13:27 | PROVIDERS: ATTEND Pharmacist | DX: I48.0 Paroxysmal atrial fibrillation (principal); Z79.01 Long term (current) use of anticoagulants | CPT/HCPCS: 85610 ==

== ENCOUNTER 2019-03-11 13:29 | Outpatient (CLI) | payer MEDICARE, OTHER | END 2019-03-11 13:30 | disposition home or self-care (01) | LOC: LAB.S 13:29 | PROVIDERS: ATTEND Pharmacist | DX: Z79.01 Long term (current) use of anticoagulants (principal); I48.0 Paroxysmal atrial fibrillation | CPT/HCPCS: 85610 ==

== ENCOUNTER 2019-03-17 07:54 | Outpatient (CLI) | payer MEDICARE, OTHER | END 2019-03-17 07:55 | disposition home or self-care (01) | LOC: LAB.S 07:54 | PROVIDERS: ATTEND Dentist | DX: R79.1 Abnormal coagulation profile (principal) | CPT/HCPCS: 85610 ==

== ENCOUNTER 2019-04-02 | Outpatient (CLI) | payer MEDICARE, OTHER | END 2019-04-02 10:34 | disposition home or self-care (01) ==

== ENCOUNTER 2019-04-23 09:40 | Outpatient (CLI) | payer MEDICARE, OTHER | END 2019-04-23 09:41 | disposition home or self-care (01) | LOC: LAB.S 09:40 | PROVIDERS: ATTEND Pharmacist | DX: I48.0 Paroxysmal atrial fibrillation (principal); Z79.01 Long term (current) use of anticoagulants | CPT/HCPCS: 85610 ==

== ENCOUNTER 2019-05-21 09:38 | Outpatient (CLI) | payer MEDICARE, OTHER | END 2019-05-21 09:39 | disposition home or self-care (01) | LOC: LAB.S 09:38 | PROVIDERS: ATTEND Pharmacist | DX: Z79.01 Long term (current) use of anticoagulants (principal); I48.0 Paroxysmal atrial fibrillation | CPT/HCPCS: 85610 ==

== ENCOUNTER 2019-06-18 09:46 | Outpatient (CLI) | payer MEDICARE, OTHER | END 2019-06-18 09:47 | disposition home or self-care (01) | LOC: LAB.S 09:46 | PROVIDERS: ATTEND Pharmacist | DX: Z79.01 Long term (current) use of anticoagulants (principal); I48.0 Paroxysmal atrial fibrillation | CPT/HCPCS: 85610 ==

== ENCOUNTER 2019-07-16 09:57 | Outpatient (CLI) | payer MEDICARE, OTHER | END 2019-07-16 09:58 | disposition home or self-care (01) | LOC: LAB.S 09:57 | PROVIDERS: ATTEND Pharmacist | DX: Z79.01 Long term (current) use of anticoagulants (principal); I48.0 Paroxysmal atrial fibrillation | CPT/HCPCS: 85610 ==

== ENCOUNTER 2019-08-13 08:34 | Outpatient (CLI) | payer MEDICARE, OTHER | END 2019-08-13 08:35 | disposition home or self-care (01) | LOC: LAB.S 08:34 | PROVIDERS: ATTEND Pharmacist | DX: Z79.01 Long term (current) use of anticoagulants (principal); I48.0 Paroxysmal atrial fibrillation | CPT/HCPCS: 85610 ==

== ENCOUNTER 2019-10-08 10:27 | Outpatient (CLI) | payer MEDICARE, OTHER | END 2019-10-08 10:28 | disposition home or self-care (01) | LOC: LAB.S 10:27 | PROVIDERS: ATTEND Pharmacist | DX: Z79.01 Long term (current) use of anticoagulants (principal); I48.0 Paroxysmal atrial fibrillation | CPT/HCPCS: 85610 ==

== ENCOUNTER 2019-12-03 11:19 | Outpatient (CLI) | payer MEDICARE, OTHER | END 2019-12-03 11:20 | disposition home or self-care (01) | LOC: LAB 11:19 | PROVIDERS: ATTEND Pharmacist | DX: I48.0 Paroxysmal atrial fibrillation (principal); Z79.01 Long term (current) use of anticoagulants | CPT/HCPCS: 85610 ==

== ENCOUNTER 2020-03-24 10:04 | Outpatient (CLI) | payer MEDICARE, OTHER | END 2020-03-24 10:05 | disposition home or self-care (01) | LOC: LAB.S 10:04 | PROVIDERS: ATTEND Pharmacist | DX: Z79.01 Long term (current) use of anticoagulants (principal); I48.0 Paroxysmal atrial fibrillation | CPT/HCPCS: 85610 ==

== ENCOUNTER 2020-04-21 08:52 | Outpatient (CLI) | payer MEDICARE, OTHER | END 2020-04-21 08:53 | disposition home or self-care (01) | LOC: LAB.S 08:52 | PROVIDERS: ATTEND Pharmacist | DX: I48.0 Paroxysmal atrial fibrillation (principal); Z79.01 Long term (current) use of anticoagulants | CPT/HCPCS: 85610 ==

== ENCOUNTER 2020-05-16 09:17 | Outpatient (CLI) | payer MEDICARE, OTHER | END 2020-05-16 09:18 | disposition home or self-care (01) | LOC: LAB.S 09:17 | PROVIDERS: ATTEND Pharmacist | DX: I48.0 Paroxysmal atrial fibrillation (principal); Z79.01 Long term (current) use of anticoagulants | CPT/HCPCS: 85610 ==

== ENCOUNTER 2020-06-14 09:43 | Outpatient (CLI) | payer MEDICARE, OTHER | END 2020-06-14 09:44 | disposition home or self-care (01) | LOC: LAB.S 09:43 | PROVIDERS: ATTEND Pharmacist | DX: I48.0 Paroxysmal atrial fibrillation (principal); Z79.01 Long term (current) use of anticoagulants | CPT/HCPCS: 85610 ==

== ENCOUNTER 2020-07-26 10:27 | Outpatient (CLI) | payer MEDICARE, OTHER | END 2020-07-26 10:28 | disposition home or self-care (01) | LOC: LAB.S 10:27 | PROVIDERS: ATTEND Pharmacist | DX: I48.0 Paroxysmal atrial fibrillation (principal); Z79.01 Long term (current) use of anticoagulants | CPT/HCPCS: 85610 ==

== ENCOUNTER 2020-09-22 09:38 | Outpatient (CLI) | payer MEDICARE, OTHER | END 2020-09-22 09:39 | disposition home or self-care (01) | LOC: LAB.S 09:38 | PROVIDERS: ATTEND Pharmacist | DX: Z79.01 Long term (current) use of anticoagulants (principal); I48.0 Paroxysmal atrial fibrillation | CPT/HCPCS: 85610 ==

== ENCOUNTER 2020-11-17 08:40 | Outpatient (CLI) | payer MEDICARE, OTHER | END 2020-11-17 08:41 | disposition home or self-care (01) | LOC: LAB.S 08:40 | PROVIDERS: ATTEND Pharmacist | DX: Z79.01 Long term (current) use of anticoagulants (principal); I48.0 Paroxysmal atrial fibrillation | CPT/HCPCS: 85610 ==

== ENCOUNTER 2021-01-12 08:21 | Outpatient (CLI) | payer MEDICARE, OTHER | END 2021-01-12 08:22 | disposition home or self-care (01) | LOC: LAB.S 08:21 | PROVIDERS: ATTEND Pharmacist | DX: I48.0 Paroxysmal atrial fibrillation (principal); Z79.01 Long term (current) use of anticoagulants | CPT/HCPCS: 36416; 85610 ==

== ENCOUNTER 2021-02-02 08:41 | Outpatient (CLI) | payer MEDICARE, OTHER | END 2021-02-02 08:42 | disposition home or self-care (01) | LOC: LAB.S 08:41 | PROVIDERS: ATTEND Pharmacist | DX: Z79.01 Long term (current) use of anticoagulants (principal); I48.0 Paroxysmal atrial fibrillation | CPT/HCPCS: 36416; 85610 ==

== ENCOUNTER 2021-02-27 08:22 | Outpatient (CLI) | payer MEDICARE, OTHER | END 2021-02-27 08:23 | disposition home or self-care (01) | LOC: LAB.S 08:22 | PROVIDERS: ATTEND Pharmacist | DX: Z79.01 Long term (current) use of anticoagulants (principal); I48.0 Paroxysmal atrial fibrillation | CPT/HCPCS: 36416; 85610 ==

== ENCOUNTER 2021-03-22 08:15 | Outpatient (CLI) | payer MEDICARE, OTHER | END 2021-03-22 08:16 | disposition home or self-care (01) | LOC: LAB.S 08:15 | PROVIDERS: ATTEND Pharmacist | DX: Z79.01 Long term (current) use of anticoagulants (principal); I48.0 Paroxysmal atrial fibrillation | CPT/HCPCS: 36416; 85610 ==

== ENCOUNTER 2021-04-20 07:55 | Outpatient (CLI) | payer MEDICARE, OTHER | END 2021-04-20 07:56 | disposition home or self-care (01) | LOC: LAB.S 07:55 | PROVIDERS: ATTEND Pharmacist | DX: Z79.01 Long term (current) use of anticoagulants (principal); I48.0 Paroxysmal atrial fibrillation | CPT/HCPCS: 36416; 85610 ==

== ENCOUNTER 2021-05-18 08:05 | Outpatient (CLI) | payer MEDICARE, OTHER | END 2021-05-18 08:06 | disposition home or self-care (01) | LOC: LAB.S 08:05 | PROVIDERS: ATTEND Pharmacist | DX: Z79.01 Long term (current) use of anticoagulants (principal); I48.0 Paroxysmal atrial fibrillation | CPT/HCPCS: 36416; 85610 ==

== ENCOUNTER 2021-08-17 08:21 | Outpatient (CLI) | payer MEDICARE, OTHER | END 2021-08-17 08:22 | disposition home or self-care (01) | LOC: LAB.S 08:21 | PROVIDERS: ATTEND Pharmacist | DX: Z79.01 Long term (current) use of anticoagulants (principal); I48.0 Paroxysmal atrial fibrillation | CPT/HCPCS: 36416; 85610 ==

== ENCOUNTER 2021-10-24 08:27 | Outpatient (CLI) | payer MEDICARE, OTHER | END 2021-10-24 08:28 | disposition home or self-care (01) | LOC: LAB.S 08:27 | PROVIDERS: ATTEND Pharmacist | DX: I48.0 Paroxysmal atrial fibrillation (principal); Z79.01 Long term (current) use of anticoagulants | CPT/HCPCS: 36416; 85610 ==

== ENCOUNTER 2021-12-28 08:18 | Outpatient (CLI) | payer MEDICARE, OTHER | END 2021-12-28 08:19 | disposition home or self-care (01) | LOC: LAB.S 08:18 | PROVIDERS: ATTEND Pharmacist | DX: I48.0 Paroxysmal atrial fibrillation (principal); Z79.01 Long term (current) use of anticoagulants | CPT/HCPCS: 36416; 85610 ==

== ENCOUNTER 2022-01-11 08:04 | Outpatient (CLI) | payer MEDICARE, OTHER | END 2022-01-11 08:05 | disposition home or self-care (01) | LOC: LAB.S 08:04 | PROVIDERS: ATTEND Pharmacist | DX: I48.0 Paroxysmal atrial fibrillation (principal); Z79.01 Long term (current) use of anticoagulants | CPT/HCPCS: 36416; 85610 ==

== ENCOUNTER 2022-03-05 08:06 | Outpatient (CLI) | payer MEDICARE, OTHER | END 2022-03-05 08:07 | disposition home or self-care (01) | LOC: LAB.S 08:06 | PROVIDERS: ATTEND Pharmacist | DX: Z79.01 Long term (current) use of anticoagulants (principal); I48.0 Paroxysmal atrial fibrillation | CPT/HCPCS: 36416; 85610 ==

== ENCOUNTER 2022-04-03 08:12 | Outpatient (CLI) | payer MEDICARE, OTHER | END 2022-04-03 08:13 | disposition home or self-care (01) | LOC: LAB.S 08:12 | PROVIDERS: ATTEND Pharmacist | DX: I48.0 Paroxysmal atrial fibrillation (principal); Z79.01 Long term (current) use of anticoagulants | CPT/HCPCS: 36416; 85610 ==

== ENCOUNTER 2022-05-10 08:15 | Outpatient (CLI) | payer MEDICARE, OTHER | END 2022-05-10 08:16 | disposition home or self-care (01) | LOC: LAB.S 08:15 | PROVIDERS: ATTEND Pharmacist | DX: I48.0 Paroxysmal atrial fibrillation (principal); Z79.01 Long term (current) use of anticoagulants | CPT/HCPCS: 85610 ==

== ENCOUNTER 2022-06-11 08:10 | Outpatient (CLI) | payer MEDICARE, OTHER | END 2022-06-11 08:11 | disposition home or self-care (01) | LOC: LAB.S 08:10 | PROVIDERS: ATTEND Pharmacist | DX: Z79.01 Long term (current) use of anticoagulants (principal); I48.0 Paroxysmal atrial fibrillation | CPT/HCPCS: 36416; 85610 ==

== ENCOUNTER 2022-07-12 08:21 | Outpatient (CLI) | payer MEDICARE, OTHER | END 2022-07-12 08:22 | disposition home or self-care (01) | LOC: LAB.S 08:21 | PROVIDERS: ATTEND Pharmacist | DX: Z79.01 Long term (current) use of anticoagulants (principal); I48.0 Paroxysmal atrial fibrillation | CPT/HCPCS: 36416; 85610 ==

== ENCOUNTER 2022-08-12 11:42 | Outpatient (CLI) | payer MEDICARE, OTHER | END 2022-08-12 11:43 | disposition home or self-care (01) | LOC: LAB.S 11:42 | PROVIDERS: ATTEND Pharmacist | DX: Z79.01 Long term (current) use of anticoagulants (principal); I48.0 Paroxysmal atrial fibrillation | CPT/HCPCS: 36416; 85610 ==

== ENCOUNTER 2022-09-02 08:20 | Outpatient (CLI) | payer MEDICARE, OTHER | END 2022-09-02 08:21 | disposition home or self-care (01) | LOC: LAB.S 08:20 | PROVIDERS: ATTEND Pharmacist | DX: Z79.01 Long term (current) use of anticoagulants (principal); I48.0 Paroxysmal atrial fibrillation | CPT/HCPCS: 36416; 85610 ==

== ENCOUNTER 2022-09-27 08:18 | Outpatient (CLI) | payer MEDICARE, OTHER | END 2022-09-27 08:19 | disposition home or self-care (01) | LOC: LAB.S 08:18 | PROVIDERS: ATTEND Pharmacist | DX: Z79.01 Long term (current) use of anticoagulants (principal); I48.0 Paroxysmal atrial fibrillation | CPT/HCPCS: 36416; 85610 ==

== ENCOUNTER 2022-10-28 08:14 | Outpatient (CLI) | payer MEDICARE, OTHER | END 2022-10-28 08:15 | disposition home or self-care (01) | LOC: LAB.S 08:14 | PROVIDERS: ATTEND Pharmacist | DX: Z79.01 Long term (current) use of anticoagulants (principal); I48.0 Paroxysmal atrial fibrillation | CPT/HCPCS: 36416; 85610 ==

== ENCOUNTER 2022-11-18 07:53 | Outpatient (CLI) | payer MEDICARE, OTHER | END 2022-11-18 07:54 | disposition home or self-care (01) | LOC: LAB.S 07:53 | PROVIDERS: ATTEND Pharmacist | DX: Z79.01 Long term (current) use of anticoagulants (principal); I48.0 Paroxysmal atrial fibrillation | CPT/HCPCS: 36416; 85610 ==

== ENCOUNTER 2022-12-18 08:04 | Outpatient (CLI) | payer MEDICARE, OTHER | END 2022-12-18 08:05 | disposition home or self-care (01) | LOC: LAB.S 08:04 | PROVIDERS: ATTEND Pharmacist | DX: Z79.01 Long term (current) use of anticoagulants (principal); I48.0 Paroxysmal atrial fibrillation | CPT/HCPCS: 36416; 85610 ==

== ENCOUNTER 2023-02-13 08:04 | Outpatient (CLI) | payer MEDICARE, OTHER | END 2023-02-13 08:05 | disposition home or self-care (01) | LOC: LAB.S 08:04 | PROVIDERS: ATTEND Pharmacist | DX: Z79.01 Long term (current) use of anticoagulants (principal); I48.0 Paroxysmal atrial fibrillation | CPT/HCPCS: 36416; 85610 ==

== ENCOUNTER 2023-04-10 08:03 | Outpatient (CLI) | payer MEDICARE, OTHER | END 2023-04-10 08:04 | disposition home or self-care (01) | LOC: LAB.S 08:03 | PROVIDERS: ATTEND Pharmacist | DX: Z79.01 Long term (current) use of anticoagulants (principal); I48.0 Paroxysmal atrial fibrillation | CPT/HCPCS: 36416; 85610 ==

== ENCOUNTER 2023-04-23 08:13 | Outpatient (CLI) | payer MEDICARE, OTHER | END 2023-04-23 08:14 | disposition home or self-care (01) | LOC: LAB.S 08:13 | PROVIDERS: ATTEND Pharmacist | DX: Z79.01 Long term (current) use of anticoagulants (principal); I48.0 Paroxysmal atrial fibrillation | CPT/HCPCS: 36416; 85610 ==

== ENCOUNTER 2023-06-06 08:14 | Outpatient (CLI) | payer MEDICARE, OTHER | END 2023-06-06 08:15 | disposition home or self-care (01) | LOC: LAB.S 08:14 | PROVIDERS: ATTEND Pharmacist | DX: Z79.01 Long term (current) use of anticoagulants (principal); I48.0 Paroxysmal atrial fibrillation | CPT/HCPCS: 36416; 85610 ==

== ENCOUNTER 2023-06-27 08:20 | Outpatient (CLI) | payer MEDICARE, OTHER | END 2023-06-27 08:21 | disposition home or self-care (01) | LOC: LAB.S 08:20 | PROVIDERS: ATTEND Pharmacist | DX: Z79.01 Long term (current) use of anticoagulants (principal); I48.0 Paroxysmal atrial fibrillation | CPT/HCPCS: 36416; 85610 ==

== ENCOUNTER 2023-07-22 16:09 | Outpatient (CLI) | payer MEDICARE, OTHER ==
--- NOTE | 2023-07-22 16:53 | XRAY Report ---
PROCEDURE: Chest 2 View X-Ray INDICATIONS: PERIPHERAL EDEMA TECHNIQUE: 2 views of the chest were acquired. COMPARISON: 07/16/2018 FINDINGS: Surgical changes and devices: None. Lungs and pleura: No pleural effusions or pneumothorax. Lungs are clear. Mediastinum: Mediastinal contours appear normal. Mild cardiomegaly, as before. Bones and chest wall: No suspicious bony lesions. Overlying soft tissues appear unremarkable. IMPRESSION: Mild cardiomegaly. No acute pulmonary process. Reviewed by: Jaiden Cabrales MD on 07/22/2023 4:52 PM PST Approved by: Jaiden Cabrales MD on 07/22/2023 4:52 PM PST Station ID: [id number]
== END 2023-07-22 23:59 | disposition home or self-care (01) ==
LOC: DI.S 16:09
PROVIDERS: ATTEND Physician Assistant
DX: I51.7 Cardiomegaly (principal); R60.0 Localized edema

== ENCOUNTER 2023-07-25 13:00 | Outpatient (CLI) | payer MEDICARE, OTHER ==
[2023-07-25 18:27] LABS: BASOPHILS % (AUTO) 0.3 %; EOSINOPHILS # (AUTO) 0.1 10^3/uL (0.0-0.7); EOSINOPHILS % (AUTO) 0.6 %; HCT - HEMATOCRIT 45.4 % (42.0-52.0); HGB - HEMOGLOBIN 14.2 g/dL (14.0-18.0); LYMPHOCYTES # (AUTO) 0.9 10^3/uL (1.5-3.5); MEAN CORPUSCULAR HEMOGLOBIN 29.8 pg (27.0-31.0); MEAN CORPUSCULAR HGB CONC 31.3 g/dL (32.0-36.0); MEAN CORPUSCULAR VOLUME 95.4 fL (80.0-94.0); MEAN PLATELET VOLUME 12.1 fL (7.4-11.4); MONOCYTES # (AUTO) 1.2 10^3/uL (0.0-1.0); NEUTROPHILS # (AUTO) 13.1 10^3/uL (1.5-6.6); NEUTROPHILS % (AUTO) 84.4 %; PLT - PLATELET COUNT 285 10^3/uL (130-450); RED BLOOD COUNT 4.76 10^6/uL (4.70-6.10); RED CELL DISTRIBUTION WIDTH 12.4 % (12.0-15.0); WHITE BLOOD COUNT 15.6 x10^3/uL (4.8-10.8)
[2023-07-25 18:29] LABS: INR 3.3 (0.8-1.2); PT - PROTHROMBIN TIME 32.9 secs (9.9-12.6)
[2023-07-25 19:19] LABS: ALBUMIN 3.9 g/dL (3.2-5.5); ALBUMIN/GLOBULIN RATIO 1.3 (1.0-2.2); BILIRUBIN,TOTAL 0.8 mg/dL (0.2-1.0); CALCIUM 8.8 mg/dL (8.5-10.3); CREATININE 0.8 mg/dL (0.6-1.3); MAGNESIUM 1.8 mg/dL (1.7-2.3); POTASSIUM 4.2 mmol/L (3.5-4.5)
[2023-07-25 19:20] LABS: MICROALBUM/CREATININE RATIO,UR 13.3 ug/mg (<30.0); MICROALBUMIN,URINE 1.6 mg/dL
== END 2023-07-25 13:15 | disposition home or self-care (01) ==
LOC: LAB.N 13:00
PROVIDERS: ATTEND Family Medicine
DX: M25.572 Pain in left ankle and joints of left foot (principal); L03.116 Cellulitis of left lower limb; R60.9 Edema, unspecified; I50.9 Heart failure, unspecified; I48.91 Unspecified atrial fibrillation
CPT/HCPCS: 36415; 80053; 82043; 82550; 82570; 83735; 83880; 85025; 85379; 85610

== ENCOUNTER 2023-07-25 19:30 | Emergency (ER) | payer MEDICARE, OTHER ==
--- NOTE | 2023-07-25 22:07 | ED Physician Documentation ---
History of Present Illness - Stated complaint Stated Complaint: SENT BY WALK IN - Chief complaint Chief Complaint: Ext Problem - Additonal information Additional information: Patient 83-year-old male presenting to the emergency department for left leg swelling. Referred by primary care after he was contacted this evening and told to come in for an ultrasound. Left lower extremity swelling x 1 week with some increased heat and tenderness to palpation. Past medical significant for atrial fibrillation for which she takes Coumadin. Reports that he believes his most recent INR was within appropriate limits. Started on Keflex earlier today by primary care. Reports has taken 1 dose and does state that he feels as though his leg is doing better. Denies fever, chills, chest pain, shortness of breath, abdominal pain, nausea, vomiting, diarrhea, constipation, recent hospitalizations, long car trips or transcontinental flights. Review of Systems Constitutional: denies: Fever Eyes: denies: Loss of vision Ears: denies: Loss of hearing Nose: denies: Rhinorrhea / runny nose Throat: denies: Dental pain / toothache Cardiac: denies: Chest pain / pressure Respiratory: denies: Dyspnea GI: denies: Abdominal Pain : denies: Dysuria Musculoskeletal: reports: Extremity swelling. denies: Neck pain PD PAST MEDICAL HISTORY - Past Medical History Cardiovascular: Hypertension, Atrial fibrillation, Murmur, Arrhythmia Respiratory: None Neuro: None Endocrine/Autoimmune: None GI: None ED TRANSPORTER: None : Benign prostate hypertrophy, Nocturia HEENT: None Psych: None Musculoskeletal: Osteoarthritis, Chronic back pain Derm: None - Past Surgical History Past Surgical History: Yes Ortho: Knee replacement HEENT: Tonsil/Adenoidectomy Derm: Skin cancer surgery - Present Medications Home Medications: Ambulatory Orders Medication Instructions Recorded Confirmed Metoprolol Succinate 25 mg PO DAILY 07/13/18 07/13/18 Multivitamin [Multivitamins] 1 tab PO DAILY 07/13/18 07/13/18 Warfarin [Coumadin] 7.5 mg PO DAILY 07/13/18 07/13/18 amLODIPine [Norvasc] 10 mg PO DAILY 07/13/18 07/13/18 lisinopriL [Lisinopril] 20 mg PO DAILY 07/13/18 07/13/18 oxyCODONE [Roxicodone] 5 mg PO Q4HR PRN #20 tablet 07/17/18 - Allergies Allergies/Adverse Reactions: Allergies Allergy/AdvReac Type Severity Reaction Status Date / Time No Known Drug Allergies Allergy Verified 07/13/18 11:06 - Social History Does the pt smoke?: No Smoking Status: Never smoker Does the pt drink ETOH?: Yes Does the pt have substance abuse?: No - Immunizations Immunizations are current?: Yes - POLST Patient has POLST: No POLST Status: Full Code PD ED PE NORMAL - General General: Alert and oriented X 3, No acute distress - HEENT HEENT: Atraumatic - Neck Neck: Supple, no meningeal sign - Cardiac Cardiac: RRR - Respiratory Respiratory: No respiratory distress - Abdomen Abdomen: Normal bowel sounds - Male Male : Deferred - Extremities Extremities: Other (Some erythema and induration to the left lower extremity extending from superior to the malleoli to the mid calf. DP PT pulses palpable. Normal capillary refill. Indications of chronic stasis dermatitis.) Results - Vitals Vitals: Vital Signs - 24 hr 07/25/23 19:42 Temperature 36.5 C Heart Rate 99 Respiratory 16 Rate Blood Pressure 150/83 H O2 Saturation 99 Oxygen O2 Source Room air PD Medical Decision Making - ED course Complexity details: re-evaluated patient, d/w patient ED course: Patient 83-year-old male presenting to the emergency department with left calf swelling. Some signs of erythema, rubor in setting of what appears to be chronic stasis dermatitis. Patient afebrile, hemodynamically stable. Is currently on Coumadin. Nevertheless was referred to the emergency department by walk-in clinic where he was started on Keflex earlier today. Ultrasound performed negative for DVT in the upper extremity although human performance technologist notes that this was a technically difficult study due to swelling in and around the calf. Given that he is otherwise afebrile, hemodynamically stable with no indications of sepsis I do believe it is appropriate for him to continue his course of Keflex. Additionally that he is already on Coumadin is also reassuring and that he would recommend low risk for blood clot. Will encourage regular use compression wraps, elevation. Will have him follow-up with his primary care doctor or return to the emergency department for new or worrisome symptoms. Departure - Departure Disposition: 01 Home, Self Care Clinical Impression: Cellulitis Qualifiers: Site of cellulitis: extremity Site of cellulitis of extremity: lower extremity Laterality: left Qualified Code(s): L03.116 - Cellulitis of left lower limb Instructions: Cellulitis Dc Comments: Thank you for allowing us to care for you today at [facility] The ultrasound taken today did not show any large blood clots. The study was somewhat limited due to the swelling in your left calf. However given that you are currently on Coumadin your risk for developing a significant blood clot is fairly low. Please begin the Keflex prescribed by your primary care doctor. I also recommend use of compression stockings and elevation is much as possible. Please do follow-up with your primary care doctor. If it anytime you have new or worsening symptoms or if you develop any other concerning symptoms such as increasing pain, fever or redness that continues to spread and does not respond to antibiotics in the next 2 to 3 days please return to the emergency department. Forms: PCP List
[2023-07-25 22:35] VITALS: BP 130/80; O2SAT 100
--- NOTE | 2023-07-25 22:35 | Ultrasound Report ---
PROCEDURE: Duplex Ext Veins Left INDICATIONS: LLE sweeling, pos dimer at urgent care TECHNIQUE: Real-time imaging, as well as color and pulse Doppler interrogation, were performed of the lower extr emity deep veins from the inguinal ligament to the popliteal fossa. Attempted visualization of the ca lf veins was performed. COMPARISON: None. FINDINGS: The deep veins are normally compressible, and free of intraluminal thrombus. Color and pu lse Doppler demonstrate normal phasic intraluminal flow. There is normal augmentation response to di stal compression maneuver. Mildly prominent inguinal lymph nodes the largest measuring 1.2 cm in short axis. IMPRESSION: No deep venous thrombosis of the visualized lower extremity. Mildly prominent inguinal lymph nodes. These could be reactive in nature. Recommend clinical correlat ion. Reviewed by: Stephy Manuel MD on 07/25/2023 10:34 PM PST Approved by: Stephy Manuel MD on 07/25/2023 10:34 PM PST Station ID: [id number]
== END 2023-07-25 22:28 | disposition home or self-care (01) ==
LOC: ED 19:30
DX: L03.116 Cellulitis of left lower limb (principal); I48.91 Unspecified atrial fibrillation; Z79.01 Long term (current) use of anticoagulants; M25.572 Pain in left ankle and joints of left foot; R60.9 Edema, unspecified; I11.0 Hypertensive heart disease with heart failure; I50.9 Heart failure, unspecified
CPT/HCPCS: 36415; 80053; 82043; 82550; 82570; 83735; 83880; 85025; 85379; 85610; 99283; 99284

== ENCOUNTER 2023-07-30 11:50 | Outpatient (CLI) | payer MEDICARE, OTHER ==
[2023-07-30 14:55] LABS: PT - PROTHROMBIN TIME 54.6 secs (9.9-12.6)
[2023-07-30 15:09] LABS: INR 5.4 (0.8-1.2)
== END 2023-07-30 11:51 | disposition home or self-care (01) ==
LOC: LAB.S 11:50
PROVIDERS: ATTEND Pharmacist
DX: Z79.01 Long term (current) use of anticoagulants (principal); I48.0 Paroxysmal atrial fibrillation
CPT/HCPCS: 36415; 36416; 85610

== ENCOUNTER 2023-08-05 10:28 | Outpatient (CLI) | payer MEDICARE, OTHER | END 2023-08-05 10:29 | disposition home or self-care (01) | LOC: LAB.S 10:28 | PROVIDERS: ATTEND Pharmacist | DX: Z79.01 Long term (current) use of anticoagulants (principal); I48.0 Paroxysmal atrial fibrillation | CPT/HCPCS: 36416; 85610 ==

== ENCOUNTER 2023-08-11 09:12 | Outpatient (CLI) | payer MEDICARE, OTHER | END 2023-08-11 09:13 | disposition home or self-care (01) | LOC: LAB.S 09:12 | PROVIDERS: ATTEND Pharmacist | DX: Z51.81 Encounter for therapeutic drug level monitoring (principal); I48.0 Paroxysmal atrial fibrillation; Z79.01 Long term (current) use of anticoagulants | CPT/HCPCS: 36416; 85610 ==

== ENCOUNTER 2023-08-18 11:21 | Outpatient (CLI) | payer MEDICARE, OTHER | END 2023-08-18 11:22 | disposition home or self-care (01) | LOC: LAB.S 11:21 | PROVIDERS: ATTEND Pharmacist | DX: I48.0 Paroxysmal atrial fibrillation (principal); Z79.01 Long term (current) use of anticoagulants | CPT/HCPCS: 36416; 85610 ==

== ENCOUNTER 2023-09-03 10:19 | Outpatient (CLI) | payer MEDICARE, OTHER | END 2023-09-03 10:20 | disposition home or self-care (01) | LOC: LAB.S 10:19 | PROVIDERS: ATTEND Pharmacist | DX: I48.0 Paroxysmal atrial fibrillation (principal); Z79.01 Long term (current) use of anticoagulants | CPT/HCPCS: 36416; 85610 ==

== ENCOUNTER 2023-10-10 07:37 | Outpatient (CLI) | payer MEDICARE, OTHER | END 2023-10-10 07:38 | disposition home or self-care (01) | LOC: LAB.S 07:37 | PROVIDERS: ATTEND Pharmacist | DX: I48.0 Paroxysmal atrial fibrillation (principal); Z79.01 Long term (current) use of anticoagulants | CPT/HCPCS: 36416; 85610 ==

== ENCOUNTER 2023-11-14 11:01 | Outpatient (CLI) | payer MEDICARE, OTHER | END 2023-11-14 11:02 | disposition home or self-care (01) | LOC: LAB.S 11:01 | PROVIDERS: ATTEND Pharmacist | DX: I48.0 Paroxysmal atrial fibrillation (principal); Z79.01 Long term (current) use of anticoagulants | CPT/HCPCS: 36416; 85610 ==

== ENCOUNTER 2023-12-02 09:03 | Outpatient (CLI) | payer MEDICARE, OTHER | END 2023-12-02 09:04 | disposition home or self-care (01) | LOC: LAB.S 09:03 | PROVIDERS: ATTEND Pharmacist | DX: I48.0 Paroxysmal atrial fibrillation (principal); Z79.01 Long term (current) use of anticoagulants | CPT/HCPCS: 36416; 85610 ==

== ENCOUNTER 2024-01-20 08:12 | Outpatient (CLI) | payer MEDICARE, OTHER | END 2024-01-20 08:13 | disposition home or self-care (01) | LOC: LAB.S 08:12 | PROVIDERS: ATTEND Pharmacist | DX: I48.0 Paroxysmal atrial fibrillation (principal); Z79.01 Long term (current) use of anticoagulants | CPT/HCPCS: 36416; 85610 ==

== ENCOUNTER 2024-02-04 13:28 | Outpatient (CLI) | payer MEDICARE, OTHER | END 2024-02-04 13:29 | disposition home or self-care (01) | LOC: LAB.S 13:28 | PROVIDERS: ATTEND Pharmacist | DX: Z79.01 Long term (current) use of anticoagulants (principal); I48.0 Paroxysmal atrial fibrillation | CPT/HCPCS: 36416; 85610 ==

== ENCOUNTER 2024-03-03 09:08 | Outpatient (CLI) | payer MEDICARE, OTHER | END 2024-03-03 09:09 | disposition home or self-care (01) | LOC: LAB.S 09:08 | PROVIDERS: ATTEND Pharmacist | DX: I48.0 Paroxysmal atrial fibrillation (principal); Z79.01 Long term (current) use of anticoagulants | CPT/HCPCS: 36416; 85610 ==

== ENCOUNTER 2024-03-22 07:33 | Outpatient (CLI) | payer MEDICARE, OTHER | END 2024-03-22 07:34 | disposition home or self-care (01) | LOC: LAB.S 07:33 | PROVIDERS: ATTEND Pharmacist | DX: I48.0 Paroxysmal atrial fibrillation (principal); Z79.01 Long term (current) use of anticoagulants | CPT/HCPCS: 36416; 85610 ==

== ENCOUNTER 2024-04-12 13:52 | Outpatient (CLI) | payer MEDICARE, OTHER | END 2024-04-12 13:53 | disposition home or self-care (01) | LOC: LAB.S 13:52 | PROVIDERS: ATTEND Pharmacist | DX: I48.0 Paroxysmal atrial fibrillation (principal); Z79.01 Long term (current) use of anticoagulants | CPT/HCPCS: 36415; 36416; 85610 ==

== ENCOUNTER 2024-05-10 13:33 | Outpatient (CLI) | payer MEDICARE, OTHER | END 2024-05-10 13:34 | disposition home or self-care (01) | LOC: LAB.S 13:33 | PROVIDERS: ATTEND Pharmacist | DX: I48.0 Paroxysmal atrial fibrillation (principal); Z79.01 Long term (current) use of anticoagulants | CPT/HCPCS: 36416; 85610 ==

== ENCOUNTER 2024-05-26 12:26 | Outpatient (CLI) | payer MEDICARE, OTHER | END 2024-05-26 12:27 | disposition home or self-care (01) | LOC: LAB.S 12:26 | PROVIDERS: ATTEND Pharmacist | DX: I48.0 Paroxysmal atrial fibrillation (principal); Z79.01 Long term (current) use of anticoagulants | CPT/HCPCS: 36416; 85610 ==